=== PATIENT | male | born 1980 | race Caucasian/White ===

== ENCOUNTER → 2016-10-10 | Outpatient (CLI) | payer MEDICARE, MEDICAID ==
[2016-10-10 07:50] LABS: BASO % 0.6 % (0.0-1.0); EOS # 0.1 K/mm3 (0.0-0.50); EOS % 2.1 % (0.0-3.0); LARGE UNSTAINED CELL # 0.1 K/mm3 (0.0-0.4); LARGE UNSTAINED CELL % 2.4 % (0.0-4.0); LYMPH # 2.6 K/mm3 (1.5-4.5); MEAN CORPUSCULAR HEMOGLOBIN 31.2 pg (27.0-33.0); MONO # 0.4 K/mm3 (0.0-0.8); MONO % 6.7 % (0.0-5.0); NEUTROPHILS # 2.7 K/mm3 (1.8-7.7); NEUTROPHILS % 46.1 % (36.0-66.0); PLATELET COUNT, AUTOMATED 184 k/mm3 (150-450); RED CELL DISTRIBUTION WIDTH 12.3 % (11.5-14.5)
[2016-10-10 07:56] LABS: MEAN CORPUSCULAR HGB CONC 36.6 g/dl (32.0-36.5)
[2016-10-10 08:27] LABS: ALBUMIN 4.2 GM/DL (3.2-5.2); ALBUMIN/GLOBULIN RATIO 1.27 (1.00-1.93); ALKALINE PHOSPHATASE 109 U/L (45-117); ALT/SGPT 71 U/L (12-78); ANION GAP 6 MEQ/L (8-16); AST/SGOT 25 U/L (15-37); BILIRUBIN,TOTAL 0.7 MG/DL (0.2-1.0); BLOOD UREA NITROGEN 16 MG/DL (7-18); CARBON DIOXIDE LEVEL 29 MEQ/L (21-32); CHLORIDE LEVEL 104 MEQ/L (98-107); CHOLESTEROL LEVEL 145 MG/DL (<200); CREATININE FOR GFR 0.94 MG/DL (0.70-1.30); GLOMERULAR FILTRATION RATE > 60.0 (>60); GLUCOSE, FASTING 94 MG/DL (70-105); POTASSIUM SERUM 4.1 MEQ/L (3.5-5.1); SODIUM LEVEL 139 MEQ/L (136-145); TOTAL PROTEIN 7.5 GM/DL (6.4-8.2); TRIGLYCERIDES LEVEL 204 MG/DL (<150)
[2016-10-18 06:17] LABS: SUMMARY SEE SEPARATE REPORT
== END ==
LOC: M LAB 06:58
PROVIDERS: ATTEND Nurse Practitioner Family
DX: F25.1 Schizoaffective disorder, depressive type (principal); Z79.899 Other long term (current) drug therapy

== ENCOUNTER 2020-03-05 23:42 | Inpatient (IN) | payer MEDICARE, MEDICAID ==
[~2020-03-05] VITALS: Ht 182.9 cm; Wt 84.6 kg
[2020-03-06 00:34] LABS: HEMOGLOBIN 14.9 g/dl (13.5-17.5); MEAN CORPUSCULAR HEMOGLOBIN 30.5 pg (27.0-33.0); MEAN CORPUSCULAR HGB CONC 35.5 g/dl (32.0-36.5); MEAN CORPUSCULAR VOLUME 86.1 fl (80.0-96.0); PLATELET COUNT, AUTOMATED 156 10^3/uL (150-450); RED BLOOD COUNT 4.88 10^6/uL (4.30-6.10); WHITE BLOOD COUNT 4.9 10^3/uL (4.0-10.0)
--- NOTE | 2020-03-06 00:39 | REPVR ---
PROCEDURE INFORMATION: Exam: CT Head Without Contrast Exam date and time: 03/06/2020 12:17 AM Age: 40 years old Clinical indication: Other: Mhe delerium TECHNIQUE: Imaging protocol: Computed tomography of the head without contrast. Radiation optimization: All CT scans at this facility use at least one of these dose optimization techniques: automated exposure control; mA and/or kV adjustment per patient size (includes targeted exams where dose is matched to clinical indication); or iterative reconstruction. COMPARISON: No relevant prior studies available. FINDINGS: Brain: Normal. No hemorrhage. Unremarkable white matter. No mass effect. Cerebral ventricles: No ventriculomegaly. Bones/joints: Unremarkable. No acute fracture. Paranasal sinuses: Visualized sinuses are unremarkable. No fluid levels. Mastoid air cells: Visualized mastoid air cells are well aerated. Soft tissues: Unremarkable. IMPRESSION: Negative noncontrast head CT. Electronically signed by: Lexa You On 03/06/2020 00:39:50 AM
[2020-03-06 00:42] LABS: AMPHETAMINES LEVEL URINE NEGATIVE (NEGATIVE); BARBITURATES URINE NEGATIVE (NEGATIVE); BENZODIAZEPINES URINE NEGATIVE (NEGATIVE); CANNABINOIDS URINE NEGATIVE (NEGATIVE); COCAINE METABOLITE URINE NEGATIVE (NEGATIVE); METHADONE URINE NEGATIVE (NEGATIVE); OPIATES URINE NEGATIVE (NEGATIVE); PHENCYCLIDINE URINE NEGATIVE (NEGATIVE)
[2020-03-06 00:50] LABS: ACETAMINOPHEN LEVEL < 2.0 UG/ML (10.0-30.0); ALBUMIN 3.9 GM/DL (3.2-5.2); ALT/SGPT 25 U/L (12-78); BILIRUBIN,DIRECT 0.1 MG/DL (0.0-0.2); BILIRUBIN,TOTAL 0.4 MG/DL (0.2-1.0); BLOOD UREA NITROGEN 5 MG/DL (7-18); CALCIUM LEVEL 9.1 MG/DL (8.5-10.1); CARBON DIOXIDE LEVEL 27 MEQ/L (21-32); CHLORIDE LEVEL 113 MEQ/L (98-107); CREATININE FOR GFR 0.94 MG/DL (0.70-1.30); ETHYL ALCOHOL (ETHANOL) 0.105 % (0.000-0.010); GLOMERULAR FILTRATION RATE > 60.0 (>60); GLUCOSE, FASTING 100 MG/DL (70-100); POTASSIUM SERUM 3.8 MEQ/L (3.5-5.1); SALICYLATE LEVEL < 1.7 MG/DL (5.0-30.0); SODIUM LEVEL 145 MEQ/L (136-145); TOTAL PROTEIN 6.9 GM/DL (6.4-8.2)
[2020-03-06] MEDS ORDERED: traZODone 50 MG TAB PO PRN (03:30)
[2020-03-06] MEDS ORDERED: MAALOX 30 ML SUSP *UDC PO PRN (03:30)
[2020-03-06] MEDS ORDERED: ACETAMINOPHEN TAB 650MG DOSE (2X325MG) PO PRN (03:30)
[2020-03-06] MEDS ORDERED: OLANZapine ORAL DISINTEGRATING TAB 5MG PO PRN (03:30)
[2020-03-06] MEDS ORDERED: MOM 30ML SUSPENSION UDC PO PRN (03:30)
[2020-03-06 05:25] VITALS: BP 127/83
--- NOTE | 2020-03-06 13:24 | HPEPDOC ---
[facility] Medical History & Physical Date of Admission Mar 06, 2020 Date of Service: Mar 06, 2020 History and Physical Chief complaint: Presented to the hospital, brought in by police for unusual behavior and speech History of present illness: Patient is a 40-year-old male with past medical history of Insomnia, mood disorder, who was brought to the hospital by police for unusual behavior and speech. Patient was admitted to the inpatient mental health unit under the care of psychiatry. Hospitalist service was consulted for medical screening evaluation. Patient appears to be cooperative, however, is not helpful in answering many questions. Patient is very tangential and was unable to provide any answers to review of systems, medical history, surgical history, family history or social history. He did, however, participate in the physical exam. Past Medical History: Review of medical record has indicated insomnia and mood disorders Past Surgical History: Unable to be obtained Allergies: See below Medications: See below Family History: - Unable to be obtained Social History: - Unable to be obtained Review of Systems: - Unable to be obtained Physical exam: - Vitals: BP [127/83], HR [57], RR [18], Sat [98%RA], Temp [97.2F] - General: Lying in bed, No acute distress, AAOx3 - HEENT: NC, AT, PERRA - CVS: RRR, +S1S2 - Lungs: Fair air entry bilaterally, No wheezing / rales / rhonchi - Abdomen: Soft, Non-distended, Non-tender - Extremities: No lower extremity edema, No calf tenderness - Neuro: No focal motor or sensory deficit - Skin: No visible rashes Assessment and Plan: Unusual behavior/speech - likely 2/2 manic episode - Patient was admitted to inpatient mental health unit under the care of psychiatry - Patient is exhibiting paranoid behavior - Currently being managed by psychiatry No significant past medical history DVT prophylaxis - Will c/w early ambulation Female stoner out was present for the duration of this history and physical examination Thank you for this consultation; hospital service will now sign off. Please re- consult as needed Vital Signs Vital Signs Date Time Temp Pulse Resp B/P (MAP) Pulse Ox O2 Delivery O2 Flow Rate FiO2 03/06/20 05:25 97.2 57 18 127/83 (98) 98 Room Air Laboratory Data Labs 24H Laboratory Tests 2 03/06/20 00:01: Nucleated Red Blood Cells % (auto) 0.0, Anion Gap 5L, Glomerular Filtration Rate > 60.0, Calcium Level 9.1, Total Bilirubin 0.4, Direct Bilirubin 0.1, Aspartate Amino Transf (AST/SGOT) 18, Alanine Aminotransferase (ALT/SGPT) 25, Alkaline Phosphatase 151H, Total Protein 6.9, Albumin 3.9, Albumin/Globulin Ratio 1.3, Thyroid Stimulating Hormone (TSH) 1.330, Salicylates Level < 1.7L, Urine Opiates Screen NEGATIVE, Urine Methadone Screen NEGATIVE, Acetaminophen Level < 2.0L, Urine Barbiturates Screen NEGATIVE, Urine Phencyclidine Screen NEGATIVE, Urine Amphetamines Screen NEGATIVE, Urine Benzodiazepines Screen NEGATIVE, Urine Cocaine Metabolite Screen NEGATIVE, Urine Cannabinoids Screen NEGATIVE, Ethyl Alcohol Level 0.105H CBC/BMP Laboratory Tests 03/06/20 00:01 Home Medications Unable to Obtain Active Prescriptions or Reported Meds Allergies Coded Allergies: No Known Allergies (Unverified , 03/05/20) CATHY LÓPEZ MD Mar 06, 2020 13:24
[2020-03-06 17:45] VITALS: BP 110/70
[2020-03-06] MEDS: ARIPiprazole 2 MG TAB PO SCH (21:00)
[2020-03-07] MEDS ORDERED: INFLUENZA QUADRIVALENT PF VACCINE 0.5ML SYRINGE IM ONE (09:00)
[2020-03-07 18:47] VITALS: BP 147/94
[2020-03-07] MEDS: ARIPiprazole 2 MG TAB PO SCH (21:00)
[2020-03-08] MEDS: OLANZapine ORAL DISINTEGRATING TAB 5MG PO SCH ×2 (09:00→21:00)
--- NOTE | 2020-03-08 12:30 | MHIPNPDOC ---
[facility] Progress Note Progress Note DATE OF SERVICE: 03/08/20 HISTORY: Patient is a 40-Year old Male who was brought to [facility] for psychotic, bizarre and delusional symptoms. VITAL SIGNS: See below. NEW TEST RESULTS: CURRENT MEDICATIONS: See below. MENTAL STATUS EXAMINATION: Patient is a 40-year old male, who is was a 9.41 to [facility] for psychotic, bizarre and delusional thinking. He appears his stated age, his hair is buzzed cut, his hygiene and grooming is fair. His eye contact is impulsive and unpredictable. He makes poor eye contact. He is somewhat restless and agitated, walking in the hallways with nonsensical statements and at times word salad. Speech: Is spontaneous and nonsensical, word salad and possible neologism Language skills are word salad, disorganized Thought processes including: disorganized, scattered, loose associations, thought blocking Thought content: Unable to ascertain depression, anxiety or suicidal/homicidal ideation. Patient is acutely psychotic and delusional. Abstract reasoning, and computation: Poor Description of associations: Disorganized and bizarre thinking "I don't take orders and I don't take meds" Description of abnormal or psychotic thoughts: Disorganized thoughts, thought blocking, makes bizarre and nonsensical statements, walking through the hallway making random statements Judgment: poor Insight: poor Orientation: alert and oriented to self Recent and remote memory: Unable to determine, thought blocking Attention span and concentration: poor Language: poor making nonsensical statements Fund of knowledge: unable to determine Mood: Hypomanic. Affect: Hypomanic/irritable DIAGNOSES: 1. Schizoaffective Disorder 2. Unspecified Schizophrenia and Other Psychotic Disorders ASSESSMENT: Patient remains psychotic. Have attempted to get patient to take an antipsychotic medications, he refuses. He presents with severely impaired insight and judgment. I attempted to have a conversation with the patient, he swiftly approached me making a statement that he does not needs medications. It is difficult to engage the patient in a conversation due to his extreme loose associations, although he is cooperative on the unit he remains very acutely psychotic, but does not appear to be dangerous or impulsive. MANAGEMENT PLAN: Patient is not stable for discharge. If patient does not improve by day 5 and still is refusing medications, I will start procedures for treatment over objection with orders to transfer to a [facility]. TIME SPENT: 15 minutes. Vital Signs Vital Signs Date Time Temp Pulse Resp B/P (MAP) Pulse Ox O2 Delivery O2 Flow Rate FiO2 03/07/20 18:47 98.0 73 18 147/94 (111) 97 Room Air Current Medications Current Medications Medications (Trade) Dose Ordered Sig/Ignacio Route PRN Reason Start Time Stop Time Status Last Admin Dose Admin Acetaminophen (Tylenol Tab) 650 mg Q6HP PRN PO HEADACHE or DISCOMFORT 03/06/20 03:30 Al Hydrox/Mg Hydrox/Simethicone (Mylanta) 30 ml Q4HP PRN PO HEARTBURN/INDIGESTION 03/06/20 03:30 Aripiprazole (AbiLIFY) 2 mg QHS PO 03/06/20 21:00 Home Med (Med Rec Complete!) ASDIRECTED XX 03/06/20 01:15 03/06/20 01:06 DC Magnesium Hydroxide (Milk Of Magnesia) 30 ml DAILYPRN PRN PO CONSTIPATION 03/06/20 03:30 Olanzapine (ZyPREXA ZYDIS) 5 mg BID PO 03/08/20 09:00 Olanzapine (ZyPREXA ZYDIS) 5 mg Q4HP PRN PO ANXIETY/AGITATION 03/06/20 03:30 Trazodone HCl (Desyrel) 50 mg QHSP PRN PO INSOMNIA 03/06/20 03:30 Allergies Coded Allergies: No Known Allergies (Unverified , 03/05/20) ROBERT MURILLO NP Mar 08, 2020 12:30
--- NOTE | 2020-03-08 13:22 | MHIPN ---
DATE: 03/07/2020 VITAL SIGNS: Blood pressure 110/70, pulse 66, temperature 98.6. CHIEF COMPLAINT: Offers no complaint, but has been pacing the unit during the morning. SUBJECTIVE: Seen for followup. Indicates slept very little, spontaneously makes statements which are not in context with what is being discussed, and is mildly agitated. Displays looseness of associations, they are looser than yesterday, disjointed statements, some of which are coherent. Affect is fair range, appears mildly irritated. No evidence of any active thoughts of harming himself or anyone else. Is quite likely deluded. Judgment and insight remain poor. ASSESSMENT: Unspecified psychotic disorder. Differential diagnoses includes bipolar disorder versus schizophrenia. PLAN: Continue current observations. He has been started on Abilify, which he has declined, we will look at persuading him to take it. He is meanwhile also on olanzapine as needed. Would suggest obtaining collateral information. Further recommendations will be made when he sees the assigned clinician tomorrow. LULA
[2020-03-08 17:00] VITALS: BP 131/80
[2020-03-08] MEDS: ARIPiprazole 2 MG TAB PO SCH (21:00)
[2020-03-09 06:42] VITALS: BP 133/66
[2020-03-09] MEDS: OLANZapine ORAL DISINTEGRATING TAB 5MG PO SCH ×2 (09:00→21:00)
[2020-03-09] MEDS ORDERED: diphenhydrAMINE 50MG CAP PO STA (11:38)
[2020-03-09] MEDS ORDERED: LORazepam 2 MG TAB PO STA (11:38)
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
[2020-03-09 16:31] VITALS: BP 141/87
[2020-03-09] MEDS: ARIPiprazole 2 MG TAB PO SCH (21:00)
[2020-03-10] MEDS: OLANZapine ORAL DISINTEGRATING TAB 5MG PO SCH ×2 (09:00→21:06)
[2020-03-10] MEDS ORDERED: diphenhydrAMINE 50MG CAP PO STA (11:23)
[2020-03-10] MEDS ORDERED: LORazepam 2 MG TAB PO STA (11:23)
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
[2020-03-10 16:31] VITALS: BP 103/68
[2020-03-10] MEDS: ARIPiprazole 2 MG TAB PO SCH (21:06)
[2020-03-11] MEDS: OLANZapine ORAL DISINTEGRATING TAB 5MG PO SCH (09:00)
[2020-03-11] MEDS ORDERED: BENZTROPINE 0.5 MG TAB PO PRN (11:15)
[2020-03-11] MEDS ORDERED: haloperidoL 5 MG TAB PO PRN (11:30)
[2020-03-11] MEDS: haloperidoL 5 MG TAB PO SCH ×3 (11:37→22:06)
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
[2020-03-12 06:47] VITALS: BP 139/62
[2020-03-12] MEDS: haloperidoL 5 MG TAB PO SCH ×3 (09:04→21:15)
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
[2020-03-12 16:09] VITALS: BP 140/70
[2020-03-13 06:42] VITALS: BP 129/75
[2020-03-13] MEDS: haloperidoL 5 MG TAB PO SCH ×3 (09:44→21:06)
[2020-03-13] MEDS: BENZTROPINE 0.5 MG TAB PO ONE ×2 (16:11→16:17)
[2020-03-13 16:31] VITALS: BP 136/90
[2020-03-13] MEDS: diphenhydrAMINE 50MG CAP PO PRN (17:15)
[2020-03-13 20:05] VITALS: BP 138/86
[2020-03-13] MEDS ORDERED: BENZTROPINE 0.5 MG TAB PO SCH (21:00)
--- NOTE | 2020-03-13 21:58 | HPEPDOC ---
[facility] Medical History & Physical Date of Admission Mar 13, 2020 Date of Service: Mar 13, 2020 Attending Physician: So Damon MD History and Physical REASON FOR CONSULT: RN requesting topical antibiotics HISTORY OF PRESENT ILLNESS: This 40 yr old M was admitted to [facility] on Mar 05 for management of an unspecified psychotic disorder. This evening he tried to remove some of the tattoos on his chest with a pencil. At the time of my arrival he reported that he had changed his mid and will keep the tattoos and that he wants to focus on getting housing. He denied having any pain, puncturing his skin or dislodging of the tip of the pencil in his skin. ROS: negative except as listed in HPI PAST MEDICAL/SURGICAL/PSYCHIATRIC HISTORY: Schizoaffective disorder SOCIAL HISTORY: Drinks a six pack a few times a month FAMILY HISTORY: n/a ALLERGIES: Please see below. HOME MEDICATIONS: Please see below. PHYSICAL EXAMINATION: Vital Signs Date Time Temp Pulse Resp B/P (MAP) Pulse Ox O2 Delivery O2 Flow Rate FiO2 03/07/20 07:58 Room Air 03/07/20 18:47 98.0 73 18 147/94 (111) 97 GENERAL APPEARANCE: asleep but arousable w vocal stimuli INTEGUMENT: has multiple tattoos / he has some redness of the skin surrounding a dolphin tattoo at his left upper chest, but the skin is intact and there is no discharge from the skin ASSESSMENT: is a 40 yr old w a hx of Schizoaffective disorder who was admitted to [facility] for management of an unspecified psychotic episode; we were reconsulted to examine him after he tried to remove his tattoos with a pencil. PLAN: 1. Unspecified Psychotic Disorder Plan: per primary team 2. Closed skin wound The wound is to superficial to be classified as an abrasion There is no need order topical abx such as Bacitracin Plan: no intervention needed Thank you for consulting us. We will sign-off. Please feel free to reconsults as needed. Vital Signs Vital Signs Date Time Temp Pulse Resp B/P (MAP) Pulse Ox O2 Delivery O2 Flow Rate FiO2 03/13/20 20:05 76 18 138/86 (103) 03/13/20 16:31 98.0 03/13/20 06:42 97 Room Air Home Medications Unable to Obtain Active Prescriptions or Reported Meds Allergies Coded Allergies: No Known Allergies (Unverified , 03/05/20) A-FIB/CHADSVASC A-FIB History Current/History of A-Fib/PAF?: No Current PO Anticoag Therapy: No BENNETT MOORE MD Mar 13, 2020 21:58
[2020-03-14 06:41] VITALS: BP 105/62
[2020-03-14] MEDS: haloperidoL 5 MG TAB PO SCH ×3 (09:53→22:04)
[2020-03-14] MEDS: diphenhydrAMINE 50MG CAP PO PRN ×2 (14:58→22:04)
[2020-03-14 16:48] VITALS: BP 132/90
[2020-03-15 07:02] VITALS: BP 116/79
[2020-03-15] MEDS: haloperidoL 5 MG TAB PO SCH ×3 (09:33→20:53)
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
[2020-03-15] MEDS: diphenhydrAMINE 50MG CAP PO PRN ×2 (14:05→20:53)
[2020-03-15 18:07] VITALS: BP 133/71
[2020-03-16] MEDS: haloperidoL 5 MG TAB PO SCH ×3 (09:22→22:35)
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
[2020-03-16 18:01] VITALS: BP 128/58
[2020-03-17 07:07] VITALS: BP 110/64
[2020-03-17] MEDS: haloperidoL 5 MG TAB PO SCH ×3 (10:10→20:55)
--- NOTE | 2020-03-17 13:01 | MHIPNPDOC ---
[facility] Progress Note Progress Note DATE OF SERVICE: 03/17/20 HISTORY: Patient is a 40 year old Single, Male who was brought into ED on a pickup order. According to the ED, patient was brought in by police, found to be yelling that perhaps he may have been robbed at knifepoint. He was observed to be confused, disorganized and had altered mental status. VITAL SIGNS: See below. NEW TEST RESULTS: See CT report, no unusual changes CURRENT MEDICATIONS: See below. MENTAL STATUS EXAMINATION: Patient is a 40-year old male, who is was a 9.41 to [facility] for psychotic, bizarre and delusional thinking. He appears his stated age, his hair is buzzed cut, his hygiene and grooming is fair. His eye contact is improved, he makes longer eye contact. He is not observed as restless and or agitated. He is making full and completed sentences many times, still walking in the hallways but with less swiftness and more casual. Speech: Is spontaneous and more linear, ram and more complete sentences. He does have an altered greg to his speech pattern, Language skills are improving, at times disorganized Thought processes including: less disorganized, less scattered, less loose associations Thought content: Unable to ascertain depression, anxiety or suicidal/homicidal ideation. Abstract reasoning, and computation: Poor Description of associations: Disorganized and bizarre thinking, speaking in full sentences. Description of abnormal or psychotic thoughts: Milder disorganized thoughts, continued thought blocking, still walking through the hallway making random statements Judgment: fair Insight: fair Orientation: alert and oriented to self Recent and remote memory: improving Attention span and concentration: fair Language: improving Fund of knowledge: improving Mood: more euthymic. Affect: reactive DIAGNOSES: 1. Schizoaffective Disorder 2. Unspecified Schizophrenia and Other Psychotic Disorders ASSESSMENT: Patient comes into the office sporadically throughout the shift. I have attempted to have him sit for longer periods, but today he is unable to do so. He stated something about his parents. When asked where his parents are, he states "[place] He further stated that he cannot return to that town because [facility] was there, and that there was an "issue crossing the river at [employer]." He continued to make statements that when he is discharged he wants to help getting housing. He continues to make random, words that are out of context. "Precipitation, not perspiration." He entered the office, stating that he will make sure his bangs are a few inches longer. He returned to the office, "My hair will be good on Sunday, just enough." Continues to have poor articulation and demonstrates that his mental status is improving but not stable for discharge. MANAGEMENT PLAN: Continue all medications. Patient is not safe for discharge at this time, but he is improving. Continue all medications. TIME SPENT: 15 minutes. Vital Signs Vital Signs Date Time Temp Pulse Resp B/P (MAP) Pulse Ox O2 Delivery O2 Flow Rate FiO2 03/17/20 07:07 98.7 74 16 110/64 (79) 99 Room Air Current Medications Current Medications Medications (Trade) Dose Ordered Sig/Ignacio Route PRN Reason Start Time Stop Time Status Last Admin Dose Admin Acetaminophen (Tylenol Tab) 650 mg Q6HP PRN PO HEADACHE or DISCOMFORT 03/06/20 03:30 Al Hydrox/Mg Hydrox/Simethicone (Mylanta) 30 ml Q4HP PRN PO HEARTBURN/INDIGESTION 03/06/20 03:30 Aripiprazole (AbiLIFY) 2 mg QHS PO 03/06/20 21:00 03/11/20 11:15 DC 03/10/20 21:06 Benztropine Mesylate (Cogentin) 0.5 mg BID PO 03/13/20 21:00 03/13/20 16:33 DC Benztropine Mesylate (Cogentin) 0.5 mg BIDP PRN PO EPS 03/11/20 11:15 Cancel Diphenhydramine HCl (Benadryl) 50 mg Q4HP PRN PO EPS 03/13/20 17:00 03/15/20 20:53 Diphenhydramine HCl (Benadryl) 50 mg STAT STAT PO 03/09/20 11:38 03/09/20 11:40 DC 03/09/20 11:57 Diphenhydramine HCl (Benadryl) 50 mg STAT STAT PO 03/10/20 11:23 03/10/20 11:27 DC 03/10/20 11:36 Haloperidol (Haldol) 5 mg Q8HP PRN PO AGITATION 03/11/20 11:30 Haloperidol (Haldol) 5 mg TID PO 03/11/20 09:00 03/17/20 10:10 Haloperidol (Haldol) 10 mg STAT STAT PO 03/09/20 11:38 03/09/20 11:40 DC 03/09/20 11:57 Haloperidol (Haldol) 10 mg STAT STAT PO 03/10/20 11:23 03/10/20 11:27 DC 03/10/20 11:36 Home Med (Med Rec Complete!) ASDIRECTED XX 03/06/20 01:15 03/06/20 01:06 DC Lorazepam (Ativan) 2 mg STAT STAT PO 03/09/20 11:38 03/09/20 11:40 DC 03/09/20 11:57 Lorazepam (Ativan) 2 mg STAT STAT PO 03/10/20 11:23 03/10/20 11:27 DC 03/10/20 11:37 Magnesium Hydroxide (Milk Of Magnesia) 30 ml DAILYPRN PRN PO CONSTIPATION 03/06/20 03:30 Olanzapine (ZyPREXA ZYDIS) 5 mg BID PO 03/08/20 09:00 03/11/20 11:19 DC 03/10/20 21:06 Olanzapine (ZyPREXA ZYDIS) 5 mg Q4HP PRN PO ANXIETY/AGITATION 03/06/20 03:30 03/11/20 11:19 DC Trazodone HCl (Desyrel) 50 mg QHSP PRN PO INSOMNIA 03/06/20 03:30 Allergies Coded Allergies: No Known Allergies (Unverified , 03/05/20) ROBERT MURILLO ACQUISITION MANAGER Mar 17, 2020 13:01
[2020-03-17] MEDS: diphenhydrAMINE 50MG CAP PO PRN (14:42)
[2020-03-17 18:00] VITALS: BP 129/86
[2020-03-18 06:17] VITALS: BP 112/70
[2020-03-18] MEDS: haloperidoL 5 MG TAB PO SCH ×2 (09:55→20:06)
--- NOTE | 2020-03-18 10:20 | MHIPNPDOC ---
[facility] Progress Note Progress Note DATE OF SERVICE: 03/18/20 HISTORY: Patient is a 40 year old Single, Male who was brought into ED on a pickup order. According to the ED, patient was brought in by police, found to be yelling that perhaps he may have been robbed at knifepoint. He was observed to be confused, disorganized and had altered mental status. VITAL SIGNS: See below. NEW TEST RESULTS: See CT report, no unusual changes CURRENT MEDICATIONS: See below. MENTAL STATUS EXAMINATION: Patient is a 40-year old male, who is was a 9.41 to [facility] for psychotic, bizarre and delusional thinking. He appears his stated age, his hair is buzzed cut, his hygiene and grooming is fair. His eye contact is improved, he makes longer eye contact. He is not observed as restless and or agitated. Speech: Is spontaneous broken sentences. He is back to one word sentences. Altered speech pattern Language : disorganized Thought processes including: today he is observed with more disorganization, he is scattered, more loose associations Thought content: Unable to ascertain depression, anxiety or suicidal/homicidal ideation. Abstract reasoning, and computation: Poor Description of associations: Disorganized and bizarre thinking, broken and altered thought processes Description of abnormal or psychotic thoughts: increased disorganized thoughts, thought blocking, still walking into the office making bizarre and random statements Judgment: poor Insight: poor Orientation: alert and oriented to self Recent and remote memory: poor Attention span and concentration: poor Language: poor Fund of knowledge: unable to ascertain Mood: Bizarre. Affect: Blunted DIAGNOSES: 1. Schizoaffective Disorder 2. Unspecified Schizophrenia and Other Psychotic Disorders ASSESSMENT: Patient comes into the office sporadically throughout the shift. I have attempted to have him sit for longer periods, but unable. He makes bizarre statements, "Just a single comment. [place]oga, Hair, Sunday just enough. "Collective soul, Melodies." "Marcos Rowland, jessica Norris Tedra." "Parker" He is thought blocking There seems to be a decline in his articulation and demonstrates that his mental status is improving but not stable for discharge. MANAGEMENT PLAN: Continue all medications. I am increasing the Haldol to 10 mg BID. Patient is not safe for discharge at this time, and appears to have moderate decline today. Continue all medications. TIME SPENT: 15 minutes. Vital Signs Vital Signs Date Time Temp Pulse Resp B/P (MAP) Pulse Ox O2 Delivery O2 Flow Rate FiO2 03/18/20 06:17 97.3 86 18 112/70 (84) 96 Room Air Current Medications Current Medications Medications (Trade) Dose Ordered Sig/Ignacio Route PRN Reason Start Time Stop Time Status Last Admin Dose Admin Acetaminophen (Tylenol Tab) 650 mg Q6HP PRN PO HEADACHE or DISCOMFORT 03/06/20 03:30 Al Hydrox/Mg Hydrox/Simethicone (Mylanta) 30 ml Q4HP PRN PO HEARTBURN/INDIGESTION 03/06/20 03:30 Aripiprazole (AbiLIFY) 2 mg QHS PO 03/06/20 21:00 03/11/20 11:15 DC 03/10/20 21:06 Benztropine Mesylate (Cogentin) 0.5 mg BID PO 03/13/20 21:00 03/13/20 16:33 DC Benztropine Mesylate (Cogentin) 0.5 mg BIDP PRN PO EPS 03/11/20 11:15 Cancel Diphenhydramine HCl (Benadryl) 50 mg Q4HP PRN PO EPS 03/13/20 17:00 03/17/20 14:42 Diphenhydramine HCl (Benadryl) 50 mg STAT STAT PO 03/09/20 11:38 03/09/20 11:40 DC 03/09/20 11:57 Diphenhydramine HCl (Benadryl) 50 mg STAT STAT PO 03/10/20 11:23 03/10/20 11:27 DC 03/10/20 11:36 Haloperidol (Haldol) 5 mg Q8HP PRN PO AGITATION 03/11/20 11:30 Haloperidol (Haldol) 5 mg TID PO 03/11/20 09:00 03/18/20 09:55 Haloperidol (Haldol) 10 mg STAT STAT PO 03/09/20 11:38 03/09/20 11:40 DC 03/09/20 11:57 Haloperidol (Haldol) 10 mg STAT STAT PO 03/10/20 11:23 03/10/20 11:27 DC 03/10/20 11:36 Home Med (Med Rec Complete!) ASDIRECTED XX 03/06/20 01:15 03/06/20 01:06 DC Lorazepam (Ativan) 2 mg STAT STAT PO 03/09/20 11:38 03/09/20 11:40 DC 03/09/20 11:57 Lorazepam (Ativan) 2 mg STAT STAT PO 03/10/20 11:23 03/10/20 11:27 DC 03/10/20 11:37 Magnesium Hydroxide (Milk Of Magnesia) 30 ml DAILYPRN PRN PO CONSTIPATION 03/06/20 03:30 Olanzapine (ZyPREXA ZYDIS) 5 mg BID PO 03/08/20 09:00 03/11/20 11:19 DC 03/10/20 21:06 Olanzapine (ZyPREXA ZYDIS) 5 mg Q4HP PRN PO ANXIETY/AGITATION 03/06/20 03:30 03/11/20 11:19 DC Trazodone HCl (Desyrel) 50 mg QHSP PRN PO INSOMNIA 03/06/20 03:30 Allergies Coded Allergies: No Known Allergies (Unverified , 03/05/20) ROBERT MURILLO ENVIRONMENTAL HEALTH NURSE Mar 18, 2020 10:20
[2020-03-18] MEDS: diphenhydrAMINE 50MG CAP PO PRN ×2 (13:09→20:06)
[2020-03-18 18:30] VITALS: BP 119/82
[2020-03-19 06:30] VITALS: BP 119/66
[2020-03-19] MEDS: haloperidoL 5 MG TAB PO SCH ×2 (08:18→20:27)
--- NOTE | 2020-03-19 13:02 | MHIPNPDOC ---
[facility] Progress Note Progress Note DATE OF SERVICE: 03/19/20 HISTORY: Patient is a 40 year old Single, Male who was brought into ED on a pickup order. According to the ED, patient was brought in by police, found to be yelling that perhaps he may have been robbed at knifepoint. He was observed to be confused, disorganized and had altered mental status. VITAL SIGNS: See below. NEW TEST RESULTS: See CT report, no unusual changes CURRENT MEDICATIONS: See below. MENTAL STATUS EXAMINATION: Patient is a 40-year old male, who is a 2PC to [facility] for psychotic, bizarre and delusional thinking. He appears his stated age, his hair is buzzed cut, his hygiene and grooming is fair. His eye contact is improved, he makes longer eye contact. He is not observed as restless and or agitated. Speech: Patient's speech is improved today from yesterday Language : intact Thought processes including: today he is observed with less disorganization, he is mildly scattered Thought content: denies depression, anxiety or suicidal/homicidal ideation. Abstract reasoning, and computation: Poor Description of associations: broken and altered thought processes at times Description of abnormal or psychotic thoughts: decreased disorganized thoughts Judgment: fair Insight: fair Orientation: alert and oriented to self Recent and remote memory: fair Attention span and concentration: fair Language: expansive Fund of knowledge: average Mood: Blunted. Affect: Blunted DIAGNOSES: 1. Schizoaffective Disorder 2. Unspecified Schizophrenia and Other Psychotic Disorders ASSESSMENT: Observed with less thought blocking, stated today "I am worried about being out there because of my housing, I don't have a firm landing. States that he has a 4 year degree in health and that he is worried about getting a job. States that he had a issue in the last apartment. Patient does have periods of anomic aphasia, difficulty supplying the word that he wants to say There seems to be a uptick in his articulation and demonstrates that his mental status is improving but not stable for discharge today. MANAGEMENT PLAN: Continue all medications. I am increasing the Haldol to 10 mg BID, this appears to have been effective. Patient is not safe for discharge at this time, and appears to have moderate decline today. Continue all medications. TIME SPENT: 25 minutes. Vital Signs Vital Signs Date Time Temp Pulse Resp B/P (MAP) Pulse Ox O2 Delivery O2 Flow Rate FiO2 03/19/20 06:30 98.7 89 14 119/66 (83) 03/18/20 06:17 96 Room Air Current Medications Current Medications Medications (Trade) Dose Ordered Sig/Ignacio Route PRN Reason Start Time Stop Time Status Last Admin Dose Admin Acetaminophen (Tylenol Tab) 650 mg Q6HP PRN PO HEADACHE or DISCOMFORT 03/06/20 03:30 Al Hydrox/Mg Hydrox/Simethicone (Mylanta) 30 ml Q4HP PRN PO HEARTBURN/INDIGESTION 03/06/20 03:30 Aripiprazole (AbiLIFY) 2 mg QHS PO 03/06/20 21:00 03/11/20 11:15 DC 03/10/20 21:06 Benztropine Mesylate (Cogentin) 0.5 mg BID PO 03/13/20 21:00 03/13/20 16:33 DC Benztropine Mesylate (Cogentin) 0.5 mg BIDP PRN PO EPS 03/11/20 11:15 Cancel Diphenhydramine HCl (Benadryl) 50 mg Q4HP PRN PO EPS 03/13/20 17:00 03/18/20 20:06 Diphenhydramine HCl (Benadryl) 50 mg STAT STAT PO 03/09/20 11:38 03/09/20 11:40 DC 03/09/20 11:57 Diphenhydramine HCl (Benadryl) 50 mg STAT STAT PO 03/10/20 11:23 03/10/20 11:27 DC 03/10/20 11:36 Haloperidol (Haldol) 5 mg Q8HP PRN PO AGITATION 03/11/20 11:30 Haloperidol (Haldol) 5 mg TID PO 03/11/20 09:00 03/18/20 10:21 DC 03/18/20 09:55 Haloperidol (Haldol) 10 mg BID PO 03/18/20 21:00 03/19/20 08:18 Haloperidol (Haldol) 10 mg STAT STAT PO 03/09/20 11:38 03/09/20 11:40 DC 03/09/20 11:57 Haloperidol (Haldol) 10 mg STAT STAT PO 03/10/20 11:23 03/10/20 11:27 DC 03/10/20 11:36 Home Med (Med Rec Complete!) ASDIRECTED XX 03/06/20 01:15 03/06/20 01:06 DC Lorazepam (Ativan) 2 mg STAT STAT PO 03/09/20 11:38 03/09/20 11:40 DC 03/09/20 11:57 Lorazepam (Ativan) 2 mg STAT STAT PO 03/10/20 11:23 03/10/20 11:27 DC 03/10/20 11:37 Magnesium Hydroxide (Milk Of Magnesia) 30 ml DAILYPRN PRN PO CONSTIPATION 03/06/20 03:30 Olanzapine (ZyPREXA ZYDIS) 5 mg BID PO 03/08/20 09:00 03/11/20 11:19 DC 03/10/20 21:06 Olanzapine (ZyPREXA ZYDIS) 5 mg Q4HP PRN PO ANXIETY/AGITATION 03/06/20 03:30 03/11/20 11:19 DC Trazodone HCl (Desyrel) 50 mg QHSP PRN PO INSOMNIA 03/06/20 03:30 Allergies Coded Allergies: No Known Allergies (Unverified , 03/05/20) ROBERT MURILLO NP Mar 19, 2020 13:02
[2020-03-19 18:51] VITALS: BP 113/61
[2020-03-20 07:07] VITALS: BP 104/61
[2020-03-20] MEDS: haloperidoL 5 MG TAB PO SCH ×2 (09:56→23:54)
[2020-03-20] MEDS: diphenhydrAMINE 50MG CAP PO PRN (16:20)
[2020-03-20 18:20] VITALS: BP 138/66
[2020-03-21 07:10] VITALS: BP 128/59
[2020-03-21] MEDS: haloperidoL 5 MG TAB PO SCH ×2 (09:57→20:27)
[2020-03-21] MEDS: diphenhydrAMINE 50MG CAP PO PRN (17:59)
[2020-03-21 18:45] VITALS: BP 121/67
[2020-03-22 06:17] VITALS: BP 105/71
[2020-03-22] MEDS: haloperidoL 5 MG TAB PO SCH ×2 (09:53→21:00)
[2020-03-22 16:13] VITALS: BP 113/59
--- NOTE | 2020-03-22 16:47 | MHIPNPDOC ---
[facility] Progress Note Progress Note DATE OF SERVICE: 03/22/20 HISTORY:Patient is a 40 year old Single, Male who was brought into ED on a pickup order. According to the ED, patient was brought in by police, found to be yelling that perhaps he may have been robbed at knifepoint. He was observed to be confused, disorganized and had altered mental status. VITAL SIGNS: See below. NEW TEST RESULTS: CURRENT MEDICATIONS: See below. Patient is a 40-year old male, who is a 2P to [facility] for psychotic, bizarre and delusional thinking. He appears his stated age, his hair is buzzed cut, his hygiene and grooming is fair. His eye contact is improved, he makes longer eye contact. He is not observed as restless and or agitated. Speech: Patient's speech is fluid, spontaneous, normal rate, tone and volume Language : intact Thought processes including: reality based, linear and goal oriented Thought content: denies depression, anxiety or suicidal/homicidal ideation. Abstract reasoning, and computation: improved Description of associations: denies and none observed Description of abnormal or psychotic thoughts: decreased disorganized thoughts Judgment: fair Insight: fair Orientation: alert and oriented to self Recent and remote memory: fair Attention span and concentration: fair Language: expansive Fund of knowledge: average Mood: "better". Affect: reactive DIAGNOSES: 1. Schizoaffective Disorder 2. Unspecified Schizophrenia and Other Psychotic Disorders ASSESSMENT: Observed with less thought blocking, stated today . He is articulating very well, his speech pattern and thinking is fluid and conversant today. He is requesting discharge and states that he wants to return home if he is able. He demonstrates that his mental status is improving but not stable for discharge today. His mentation is greatly improved and he is not meeting criteria as this continues to improve. He does have period of aphasia in which he has difficulty finding his words. But overall his mentation has improved enough for us to consider his discharge this week. MANAGEMENT PLAN: Continue all medications. Patient is to be discharged to his apartment, pending that he is still able to return. Discharge this week Continue all medications. TIME SPENT: 25 minutes. Vital Signs Vital Signs Date Time Temp Pulse Resp B/P (MAP) Pulse Ox O2 Delivery O2 Flow Rate FiO2 03/22/20 16:13 98.8 76 16 113/59 (77) 03/22/20 06:17 99 Room Air Current Medications Current Medications Medications (Trade) Dose Ordered Sig/Ignacio Route PRN Reason Start Time Stop Time Status Last Admin Dose Admin Acetaminophen (Tylenol Tab) 650 mg Q6HP PRN PO HEADACHE or DISCOMFORT 03/06/20 03:30 Al Hydrox/Mg Hydrox/Simethicone (Mylanta) 30 ml Q4HP PRN PO HEARTBURN/INDIGESTION 03/06/20 03:30 Aripiprazole (AbiLIFY) 2 mg QHS PO 03/06/20 21:00 03/11/20 11:15 DC 03/10/20 21:06 Benztropine Mesylate (Cogentin) 0.5 mg BID PO 03/13/20 21:00 03/13/20 16:33 DC Benztropine Mesylate (Cogentin) 0.5 mg BIDP PRN PO EPS 03/11/20 11:15 Cancel Diphenhydramine HCl (Benadryl) 50 mg Q4HP PRN PO EPS 03/13/20 17:00 03/21/20 17:59 Diphenhydramine HCl (Benadryl) 50 mg STAT STAT PO 03/09/20 11:38 03/09/20 11:40 DC 03/09/20 11:57 Diphenhydramine HCl (Benadryl) 50 mg STAT STAT PO 03/10/20 11:23 03/10/20 11:27 DC 03/10/20 11:36 Haloperidol (Haldol) 5 mg Q8HP PRN PO AGITATION 03/11/20 11:30 Haloperidol (Haldol) 5 mg TID PO 03/11/20 09:00 03/18/20 10:21 DC 03/18/20 09:55 Haloperidol (Haldol) 10 mg BID PO 03/18/20 21:00 03/22/20 09:53 Haloperidol (Haldol) 10 mg STAT STAT PO 03/09/20 11:38 03/09/20 11:40 DC 03/09/20 11:57 Haloperidol (Haldol) 10 mg STAT STAT PO 03/10/20 11:23 03/10/20 11:27 DC 03/10/20 11:36 Home Med (Med Rec Complete!) ASDIRECTED XX 03/06/20 01:15 03/06/20 01:06 DC Lorazepam (Ativan) 2 mg STAT STAT PO 03/09/20 11:38 03/09/20 11:40 DC 03/09/20 11:57 Lorazepam (Ativan) 2 mg STAT STAT PO 03/10/20 11:23 03/10/20 11:27 DC 03/10/20 11:37 Magnesium Hydroxide (Milk Of Magnesia) 30 ml DAILYPRN PRN PO CONSTIPATION 03/06/20 03:30 Olanzapine (ZyPREXA ZYDIS) 5 mg BID PO 03/08/20 09:00 03/11/20 11:19 DC 03/10/20 21:06 Olanzapine (ZyPREXA ZYDIS) 5 mg Q4HP PRN PO ANXIETY/AGITATION 03/06/20 03:30 03/11/20 11:19 DC Trazodone HCl (Desyrel) 50 mg QHSP PRN PO INSOMNIA 03/06/20 03:30 Allergies Coded Allergies: No Known Allergies (Unverified , 03/05/20) ROBERT MURILLO ZIPPER REPAIRER Mar 22, 2020 16:47
[2020-03-22] MEDS: diphenhydrAMINE 50MG CAP PO PRN (17:40)
[2020-03-23 06:42] VITALS: BP 103/57
[2020-03-23] MEDS: haloperidoL 5 MG TAB PO SCH ×2 (08:21→20:09)
--- NOTE | 2020-03-23 10:07 | MHIPNPDOC ---
[facility] Progress Note Progress Note DATE OF SERVICE: 03/23/20 HISTORY:Patient is a 40 year old Single, Male who was brought into ED on a pickup order. According to the ED, patient was brought in by police, found to be yelling that perhaps he may have been robbed at knifepoint. He was observed to be confused, disorganized and had altered mental status. VITAL SIGNS: See below. NEW TEST RESULTS: CURRENT MEDICATIONS: See below. Patient is a 40-year old male, who is a 2PC to [facility] for psychotic, bizarre and delusional thinking. He appears his stated age, his hair is buzzed cut, his hygiene and grooming is fair. His eye contact is improved, he makes longer eye contact. He is not observed as restless and or agitated. Speech: Patient's speech is fluid, spontaneous, normal tone and volume Language : intact Thought processes including: reality based, linear and goal oriented, but at times disorganized and disjointed Thought content: denies depression, anxiety or suicidal/homicidal ideation. Abstract reasoning, and computation: improved Description of associations: denies and none observed Description of abnormal or psychotic thoughts: decreased disorganized thoughts Judgment: fair Insight: fair Orientation: alert and oriented to self Recent and remote memory: fair Attention span and concentration: fair Language: fair Fund of knowledge: average Mood: Reports no depression. Euthymic Affect: reactive DIAGNOSES: 1. Schizoaffective Disorder 2. Unspecified Schizophrenia and Other Psychotic Disorders ASSESSMENT: Patient observed with continued improvements, he has hesitation in his sentences but he is able to communicate although he has moments when he has difficulty coming up with a word or two. Many times he makes random statements that are incongruent to the current topic. Stated in today's interview that he may or may not be able to return to [facility] due to the noise complaints. He admits that he was the cause of the noise complaints. 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 MANAGEMENT PLAN: Patient agreeable to Haldol Decanoate 100 mg IM 03/24/20. When we can establish his housing and whether he has case management patient is to be discharged to his apartment, pending that he is still able to return. Discharge when he is stable and has safe housing. Continue all medications. TIME SPENT: 25 minutes. Vital Signs Vital Signs Date Time Temp Pulse Resp B/P (MAP) Pulse Ox O2 Delivery O2 Flow Rate FiO2 03/23/20 06:42 98.5 61 16 103/57 (72) 03/22/20 06:17 99 Room Air Current Medications Current Medications Medications (Trade) Dose Ordered Sig/Ignacio Route PRN Reason Start Time Stop Time Status Last Admin Dose Admin Acetaminophen (Tylenol Tab) 650 mg Q6HP PRN PO HEADACHE or DISCOMFORT 03/06/20 03:30 Al Hydrox/Mg Hydrox/Simethicone (Mylanta) 30 ml Q4HP PRN PO HEARTBURN/INDIGESTION 03/06/20 03:30 Aripiprazole (AbiLIFY) 2 mg QHS PO 03/06/20 21:00 03/11/20 11:15 DC 03/10/20 21:06 Benztropine Mesylate (Cogentin) 0.5 mg BID PO 03/13/20 21:00 03/13/20 16:33 DC Benztropine Mesylate (Cogentin) 0.5 mg BIDP PRN PO EPS 03/11/20 11:15 Cancel Diphenhydramine HCl (Benadryl) 50 mg Q4HP PRN PO EPS 03/13/20 17:00 03/22/20 17:40 Diphenhydramine HCl (Benadryl) 50 mg STAT STAT PO 03/09/20 11:38 03/09/20 11:40 DC 03/09/20 11:57 Diphenhydramine HCl (Benadryl) 50 mg STAT STAT PO 03/10/20 11:23 03/10/20 11:27 DC 03/10/20 11:36 Haloperidol (Haldol) 5 mg Q8HP PRN PO AGITATION 03/11/20 11:30 Haloperidol (Haldol) 5 mg TID PO 03/11/20 09:00 03/18/20 10:21 DC 03/18/20 09:55 Haloperidol (Haldol) 10 mg BID PO 03/18/20 21:00 03/23/20 08:21 Haloperidol (Haldol) 10 mg STAT STAT PO 03/09/20 11:38 03/09/20 11:40 DC 03/09/20 11:57 Haloperidol (Haldol) 10 mg STAT STAT PO 03/10/20 11:23 03/10/20 11:27 DC 03/10/20 11:36 Home Med (Med Rec Complete!) ASDIRECTED XX 03/06/20 01:15 03/06/20 01:06 DC Lorazepam (Ativan) 2 mg STAT STAT PO 03/09/20 11:38 03/09/20 11:40 DC 03/09/20 11:57 Lorazepam (Ativan) 2 mg STAT STAT PO 03/10/20 11:23 03/10/20 11:27 DC 03/10/20 11:37 Magnesium Hydroxide (Milk Of Magnesia) 30 ml DAILYPRN PRN PO CONSTIPATION 03/06/20 03:30 Olanzapine (ZyPREXA ZYDIS) 5 mg BID PO 03/08/20 09:00 03/11/20 11:19 DC 03/10/20 21:06 Olanzapine (ZyPREXA ZYDIS) 5 mg Q4HP PRN PO ANXIETY/AGITATION 03/06/20 03:30 03/11/20 11:19 DC Trazodone HCl (Desyrel) 50 mg QHSP PRN PO INSOMNIA 03/06/20 03:30 Allergies Coded Allergies: No Known Allergies (Unverified , 03/05/20) ROBERT MURILLO PLANT OPERATOR/SHIFT SUPERVISOR Mar 23, 2020 10:07
[2020-03-23 16:37] VITALS: BP 115/68
[2020-03-23] MEDS: diphenhydrAMINE 50MG CAP PO PRN (19:24)
[2020-03-24 07:18] VITALS: BP 132/74
[2020-03-24] MEDS ORDERED: HALOPERIDOL DECANOATE 100 MG/ML VIAL (J1631) IM SCH (09:00)
[2020-03-24] MEDS: haloperidoL 5 MG TAB PO SCH ×2 (09:32→22:58)
--- NOTE | 2020-03-24 15:39 | MHIPNPDOC ---
[facility] Progress Note Progress Note DATE OF SERVICE: 03/24/20 HISTORY:Patient is a 40 year old Single, Male who was brought into ED on a pickup order. According to the ED, patient was brought in by police, found to be yelling that perhaps he may have been robbed at knifepoint. He was observed to be confused, disorganized and had altered mental status. VITAL SIGNS: See below. NEW TEST RESULTS: CURRENT MEDICATIONS: See below. Patient is a 40-year old male, who is a 2P to [facility] for psychotic, bizarre and delusional thinking. He appears his stated age, his hair is buzzed cut, his hygiene and grooming is fair. His eye contact is improved, he makes longer eye contact. He is not observed as restless and or agitated. Speech: Patient's speech is fluid, spontaneous, normal tone and volume. He has mild halting conversations and at times struggles for the right word. Language : intact Thought processes including: reality based, linear and goal oriented, but at times disorganized Thought content: denies depression, anxiety or suicidal/homicidal ideation. Abstract reasoning, and computation: improved Description of associations: denies and none observed Description of abnormal or psychotic thoughts: increased linear thinking Judgment: fair Insight: fair Orientation: alert and oriented to self, place and situation Recent and remote memory: fair Attention span and concentration: fair Language: fair Fund of knowledge: average Mood: Reports no depression. Euthymic Affect: reactive DIAGNOSES: 1. Schizophrenia, Paranoid Type 2. Unspecified Schizophrenia and Other Psychotic Disorders ASSESSMENT: Patient observed with continued improvements, he entered my office and states "I don't want the shot, I only want the pills," Later in the day, patient had taken the Haldol Decanoate. He is improving and he is getting close to being discharged. He has a behavioral health case manager who can assist with housing for the patient. This is a patient who is historically non-compliant with medications, has been diagnosed Schizophrenia, Paranoid Type per TLS. He continues to have linear and logical conversation but does however will shout out one word sentences randomly in the hallway or to staff. He has not been aggressive or agitated on the unit since he started the oral Haldol dose. MANAGEMENT PLAN: Continue all medications as ordered. Discharge when he is stable and has safe housing. TIME SPENT: 25 minutes. Vital Signs Vital Signs Date Time Temp Pulse Resp B/P (MAP) Pulse Ox O2 Delivery O2 Flow Rate FiO2 03/24/20 07:18 96.8 70 18 132/74 (93) 03/22/20 06:17 99 Room Air Current Medications Current Medications Medications (Trade) Dose Ordered Sig/Ignacio Route PRN Reason Start Time Stop Time Status Last Admin Dose Admin Acetaminophen (Tylenol Tab) 650 mg Q6HP PRN PO HEADACHE or DISCOMFORT 03/06/20 03:30 Al Hydrox/Mg Hydrox/Simethicone (Mylanta) 30 ml Q4HP PRN PO HEARTBURN/INDIGESTION 03/06/20 03:30 Aripiprazole (AbiLIFY) 2 mg QHS PO 03/06/20 21:00 03/11/20 11:15 DC 03/10/20 21:06 Benztropine Mesylate (Cogentin) 0.5 mg BID PO 03/13/20 21:00 03/13/20 16:33 DC Benztropine Mesylate (Cogentin) 0.5 mg BIDP PRN PO EPS 03/11/20 11:15 Cancel Diphenhydramine HCl (Benadryl) 50 mg Q4HP PRN PO EPS 03/13/20 17:00 03/23/20 19:24 Diphenhydramine HCl (Benadryl) 50 mg STAT STAT PO 03/09/20 11:38 03/09/20 11:40 DC 03/09/20 11:57 Diphenhydramine HCl (Benadryl) 50 mg STAT STAT PO 03/10/20 11:23 03/10/20 11:27 DC 03/10/20 11:36 Haloperidol (Haldol) 5 mg Q8HP PRN PO AGITATION 03/11/20 11:30 Haloperidol (Haldol) 5 mg TID PO 03/11/20 09:00 03/18/20 10:21 DC 03/18/20 09:55 Haloperidol (Haldol) 10 mg BID PO 03/18/20 21:00 03/24/20 09:32 Haloperidol (Haldol) 10 mg STAT STAT PO 03/09/20 11:38 03/09/20 11:40 DC 03/09/20 11:57 Haloperidol (Haldol) 10 mg STAT STAT PO 03/10/20 11:23 03/10/20 11:27 DC 03/10/20 11:36 Haloperidol Decanoate (Haldol Decanoate) 100 mg Q28D IM 03/24/20 09:00 03/24/20 10:20 Home Med (Med Rec Complete!) ASDIRECTED XX 03/06/20 01:15 03/06/20 01:06 DC Lorazepam (Ativan) 2 mg STAT STAT PO 03/09/20 11:38 03/09/20 11:40 DC 03/09/20 11:57 Lorazepam (Ativan) 2 mg STAT STAT PO 03/10/20 11:23 03/10/20 11:27 DC 03/10/20 11:37 Magnesium Hydroxide (Milk Of Magnesia) 30 ml DAILYPRN PRN PO CONSTIPATION 03/06/20 03:30 Olanzapine (ZyPREXA ZYDIS) 5 mg BID PO 03/08/20 09:00 03/11/20 11:19 DC 03/10/20 21:06 Olanzapine (ZyPREXA ZYDIS) 5 mg Q4HP PRN PO ANXIETY/AGITATION 03/06/20 03:30 03/11/20 11:19 DC Trazodone HCl (Desyrel) 50 mg QHSP PRN PO INSOMNIA 03/06/20 03:30 Allergies Coded Allergies: No Known Allergies (Unverified , 03/05/20) ROBERT MURILLO PLASTICS WORKER Mar 24, 2020 15:39
[2020-03-24 16:51] VITALS: BP 106/62
[2020-03-24] MEDS: diphenhydrAMINE 50MG CAP PO PRN ×2 (18:47→22:58)
[2020-03-25] MEDS: haloperidoL 5 MG TAB PO SCH ×2 (10:10→21:15)
--- NOTE | 2020-03-25 16:51 | MHIPNPDOC ---
[facility] Progress Note Progress Note DATE OF SERVICE: 03/25/20 HISTORY:Patient is a 40 year old Single, Male who was brought into ED on a pickup order. According to the ED, patient was brought in by police, found to be yelling that perhaps he may have been robbed at knifepoint. He was observed to be confused, disorganized and had altered mental status. Per TLS, he has a history of Schizophrenia, paranoid type VITAL SIGNS: See below. NEW TEST RESULTS: CURRENT MEDICATIONS: See below. Patient is a 40-year old male, who is a 2PC to [facility] for psychotic, bizarre and delusional thinking. He appears his stated age, his hygiene and grooming is fair. His eye contact is good Speech: Patient's speech is fluid, spontaneous, normal tone and volume. He has mild halting conversations and at times struggles for the right word. Language : intact Thought processes including: reality based, linear and goal oriented, but at times disorganized Thought content: denies depression, anxiety or suicidal/homicidal ideation. Abstract reasoning, and computation: improved Description of associations: denies and none observed Description of abnormal or psychotic thoughts: increased linear thinking Judgment: fair Insight: fair Orientation: alert and oriented to self, place and situation Recent and remote memory: fair Attention span and concentration: fair Language: fair Fund of knowledge: average Mood: "I am even keeled, I feel like it's the middle of the road." Euthymic Affect: reactive DIAGNOSES: 1. Schizophrenia, Paranoid Type 2. Unspecified Schizophrenia and Other Psychotic Disorders ASSESSMENT: Patient was withdrawn today, stayed in his room most of the day. During the interview, he stated that he was not having any pain, when asked why he was in bed most of the shift, stated that he was bored. Patient wants to try to find housing, at this time he is closer to discharge, but we are waiting to hear from TLS and case management about safe housing. MANAGEMENT PLAN: Continue all medications as ordered. 2nd KENNEDY ordered for Sunday Haldol 100 mg IM. Patient is agreeable. Medications were discussed with pharmacy. Discharge when he is stable and has safe housing. TIME SPENT: 25 minutes. Vital Signs Vital Signs Date Time Temp Pulse Resp B/P (MAP) Pulse Ox O2 Delivery O2 Flow Rate FiO2 03/24/20 16:51 98.8 82 16 106/62 (77) 03/22/20 06:17 99 Room Air Current Medications Current Medications Medications (Trade) Dose Ordered Sig/Ignacio Route PRN Reason Start Time Stop Time Status Last Admin Dose Admin Acetaminophen (Tylenol Tab) 650 mg Q6HP PRN PO HEADACHE or DISCOMFORT 03/06/20 03:30 Al Hydrox/Mg Hydrox/Simethicone (Mylanta) 30 ml Q4HP PRN PO HEARTBURN/INDIGESTION 03/06/20 03:30 Aripiprazole (AbiLIFY) 2 mg QHS PO 03/06/20 21:00 03/11/20 11:15 DC 03/10/20 21:06 Benztropine Mesylate (Cogentin) 0.5 mg BID PO 03/13/20 21:00 03/13/20 16:33 DC Benztropine Mesylate (Cogentin) 0.5 mg BIDP PRN PO EPS 03/11/20 11:15 Cancel Diphenhydramine HCl (Benadryl) 50 mg Q4HP PRN PO EPS 03/13/20 17:00 03/24/20 22:58 Diphenhydramine HCl (Benadryl) 50 mg STAT STAT PO 03/09/20 11:38 03/09/20 11:40 DC 03/09/20 11:57 Diphenhydramine HCl (Benadryl) 50 mg STAT STAT PO 03/10/20 11:23 03/10/20 11:27 DC 03/10/20 11:36 Haloperidol (Haldol) 5 mg Q8HP PRN PO AGITATION 03/11/20 11:30 Haloperidol (Haldol) 5 mg TID PO 03/11/20 09:00 03/18/20 10:21 DC 03/18/20 09:55 Haloperidol (Haldol) 10 mg BID PO 03/18/20 21:00 03/25/20 10:10 Haloperidol (Haldol) 10 mg STAT STAT PO 03/09/20 11:38 03/09/20 11:40 DC 03/09/20 11:57 Haloperidol (Haldol) 10 mg STAT STAT PO 03/10/20 11:23 03/10/20 11:27 DC 03/10/20 11:36 Haloperidol Decanoate (Haldol Decanoate) 100 mg Q28D IM 03/24/20 09:00 03/24/20 10:20 Home Med (Med Rec Complete!) ASDIRECTED XX 03/06/20 01:15 03/06/20 01:06 DC Lorazepam (Ativan) 2 mg STAT STAT PO 03/09/20 11:38 03/09/20 11:40 DC 03/09/20 11:57 Lorazepam (Ativan) 2 mg STAT STAT PO 03/10/20 11:23 03/10/20 11:27 DC 03/10/20 11:37 Magnesium Hydroxide (Milk Of Magnesia) 30 ml DAILYPRN PRN PO CONSTIPATION 03/06/20 03:30 Olanzapine (ZyPREXA ZYDIS) 5 mg BID PO 03/08/20 09:00 03/11/20 11:19 DC 03/10/20 21:06 Olanzapine (ZyPREXA ZYDIS) 5 mg Q4HP PRN PO ANXIETY/AGITATION 03/06/20 03:30 03/11/20 11:19 DC Trazodone HCl (Desyrel) 50 mg QHSP PRN PO INSOMNIA 03/06/20 03:30 Allergies Coded Allergies: No Known Allergies (Unverified , 03/05/20) ROBERT MURILLO NP Mar 25, 2020 16:51
[2020-03-25] MEDS: diphenhydrAMINE 50MG CAP PO PRN (23:22)
[2020-03-26 06:48] VITALS: BP 118/75
[2020-03-26] MEDS: haloperidoL 5 MG TAB PO SCH ×2 (09:15→20:13)
--- NOTE | 2020-03-26 14:59 | MHIPNPDOC ---
[facility] Progress Note Progress Note DATE OF SERVICE: 03/26/20 HISTORY:Patient is a 40 year old Single, Male who was brought into ED on a pickup order. According to the ED, patient was brought in by police, found to be yelling that perhaps he may have been robbed at knifepoint. He was observed to be confused, disorganized and had altered mental status. Per TLS, he has a history of Schizophrenia, paranoid type VITAL SIGNS: See below. NEW TEST RESULTS: CURRENT MEDICATIONS: See below. Patient is a 40-year old male, who is a 2PC to [facility] for psychotic, bizarre and delusional thinking. He appears his stated age, his hygiene and grooming is fair. His eye contact is good Speech: Patient's speech is fluid, spontaneous, normal tone and volume Language : intact Thought processes including: reality based, linear and goal oriented Thought content: denies depression, anxiety or suicidal/homicidal ideation. Abstract reasoning, and computation: improved Description of associations: denies and none observed Description of abnormal or psychotic thoughts: none observed Judgment: fair Insight: fair Orientation: alert and oriented to self, place and situation Recent and remote memory: fair Attention span and concentration: fair Language: fair Fund of knowledge: average Mood: "good." Euthymic Affect: reactive DIAGNOSES: 1. Schizophrenia, Paranoid Type 2. Unspecified Schizophrenia and Other Psychotic Disorders ASSESSMENT: Patient was withdrawn again today, stayed in his room most of the day. Patient states that he would be agreeable to [address]. He states that he was hoping to be discharged but at this time we are attempting to get case management and definitive housing for the patient. We need to have this in place as it would be futile to discharge patient as his rehospitalizat ion would probably be immediate without case management, he has a history of poor compliance with treatment. He has a history of aggression and violent behaviors without medications. Currently he is taking Haldol Decanoate and says that he can maintain this regimen, we feel that it is imperative for the patient to have intense services to minimize/reduce rehospitalizations. MANAGEMENT PLAN: Continue all medications as ordered. 2nd KENNEDY ordered for Sunday Haldol 100 mg IM. Patient is agreeable. Medications were discussed with pharmacy. Discharge when he is stable and has safe housing. TIME SPENT: 15 minutes. Vital Signs Vital Signs Date Time Temp Pulse Resp B/P (MAP) Pulse Ox O2 Delivery O2 Flow Rate FiO2 03/26/20 06:48 98.1 79 16 118/75 (89) 96 Room Air Current Medications Current Medications Medications (Trade) Dose Ordered Sig/Ignacio Route PRN Reason Start Time Stop Time Status Last Admin Dose Admin Acetaminophen (Tylenol Tab) 650 mg Q6HP PRN PO HEADACHE or DISCOMFORT 03/06/20 03:30 Al Hydrox/Mg Hydrox/Simethicone (Mylanta) 30 ml Q4HP PRN PO HEARTBURN/INDIGESTION 03/06/20 03:30 Aripiprazole (AbiLIFY) 2 mg QHS PO 03/06/20 21:00 03/11/20 11:15 DC 03/10/20 21:06 Benztropine Mesylate (Cogentin) 0.5 mg BID PO 03/13/20 21:00 03/13/20 16:33 DC Benztropine Mesylate (Cogentin) 0.5 mg BIDP PRN PO EPS 03/11/20 11:15 Cancel Diphenhydramine HCl (Benadryl) 50 mg Q4HP PRN PO EPS 03/13/20 17:00 03/25/20 23:22 Diphenhydramine HCl (Benadryl) 50 mg STAT STAT PO 03/09/20 11:38 03/09/20 11:40 DC 03/09/20 11:57 Diphenhydramine HCl (Benadryl) 50 mg STAT STAT PO 03/10/20 11:23 03/10/20 11:27 DC 03/10/20 11:36 Haloperidol (Haldol) 5 mg Q8HP PRN PO AGITATION 03/11/20 11:30 Haloperidol (Haldol) 5 mg TID PO 03/11/20 09:00 03/18/20 10:21 DC 03/18/20 09:55 Haloperidol (Haldol) 10 mg BID PO 03/18/20 21:00 03/26/20 09:15 Haloperidol (Haldol) 10 mg STAT STAT PO 03/09/20 11:38 03/09/20 11:40 DC 03/09/20 11:57 Haloperidol (Haldol) 10 mg STAT STAT PO 03/10/20 11:23 03/10/20 11:27 DC 03/10/20 11:36 Haloperidol Decanoate (Haldol Decanoate) 100 mg Q28D IM 03/24/20 09:00 03/24/20 10:20 Home Med (Med Rec Complete!) ASDIRECTED XX 03/06/20 01:15 03/06/20 01:06 DC Lorazepam (Ativan) 2 mg STAT STAT PO 03/09/20 11:38 03/09/20 11:40 DC 03/09/20 11:57 Lorazepam (Ativan) 2 mg STAT STAT PO 03/10/20 11:23 03/10/20 11:27 DC 03/10/20 11:37 Magnesium Hydroxide (Milk Of Magnesia) 30 ml DAILYPRN PRN PO CONSTIPATION 03/06/20 03:30 Olanzapine (ZyPREXA ZYDIS) 5 mg BID PO 03/08/20 09:00 03/11/20 11:19 DC 03/10/20 21:06 Olanzapine (ZyPREXA ZYDIS) 5 mg Q4HP PRN PO ANXIETY/AGITATION 03/06/20 03:30 03/11/20 11:19 DC Trazodone HCl (Desyrel) 50 mg QHSP PRN PO INSOMNIA 03/06/20 03:30 Allergies Coded Allergies: No Known Allergies (Unverified , 03/05/20) ROBERT MURILLO TIRE CENTER MANAGER Mar 26, 2020 14:40
[2020-03-26 16:15] VITALS: BP 119/71
[2020-03-26] MEDS: diphenhydrAMINE 50MG CAP PO PRN (20:13)
[2020-03-27 06:26] VITALS: BP 107/60
[2020-03-27] MEDS: haloperidoL 5 MG TAB PO SCH ×2 (09:26→20:32)
[2020-03-27] MEDS: diphenhydrAMINE 50MG CAP PO PRN ×2 (16:08→20:32)
[2020-03-27 16:34] VITALS: BP 122/64
[2020-03-28 06:23] VITALS: BP 116/63
[2020-03-28] MEDS ORDERED: HALOPERIDOL DECANOATE 100 MG/ML VIAL (J1631) IM ONE (09:00)
[2020-03-28] MEDS: haloperidoL 5 MG TAB PO SCH ×2 (09:14→22:04)
[2020-03-28] MEDS: diphenhydrAMINE 50MG CAP PO PRN (15:49)
[2020-03-28 16:41] VITALS: BP 106/59
[2020-03-28] MEDS ORDERED: diphenhydrAMINE 50MG CAP PO ONE (18:00)
[2020-03-28] MEDS ORDERED: LORazepam 1 MG TAB PO ONE (18:00)
[2020-03-29 06:48] VITALS: BP 123/62
[2020-03-29] MEDS: haloperidoL 5 MG TAB PO SCH ×2 (09:24→20:30)
--- NOTE | 2020-03-29 13:27 | MHIPNPDOC ---
[facility] Progress Note Progress Note DATE OF SERVICE: 03/29/20 HISTORY:Patient is a 40 year old Single, Male who was brought into ED on a pickup order. According to the ED, patient was brought in by police, found to be yelling that perhaps he may have been robbed at knifepoint. He was observed to be confused, disorganized and had altered mental status. Per TLS, he has a history of Schizophrenia, paranoid type VITAL SIGNS: See below. NEW TEST RESULTS: CURRENT MEDICATIONS: See below. Patient is a 40-year old male, who is a 2PC to [facility] for psychotic, bizarre and delusional thinking. He appears his stated age, his hygiene and grooming is fair. His eye contact is good Speech: Patient's speech is fluid, spontaneous, normal tone and volume Language : intact Thought processes including: reality based, linear and goal oriented Thought content: denies depression, anxiety or suicidal/homicidal ideation. Abstract reasoning, and computation: improved Description of associations: denies and none observed Description of abnormal or psychotic thoughts: none observed Judgment: fair to good Insight: fair to good Orientation: alert and oriented to self, place and situation Recent and remote memory: fair Attention span and concentration: good Language: fair Fund of knowledge: average Mood: "good." Euthymic Affect: reactive DIAGNOSES: 1. Schizophrenia, Paranoid Type 2. Unspecified Schizophrenia and Other Psychotic Disorders ASSESSMENT: Patient was withdrawn again today, stayed in his room most of the day. At this time, he has been compliant with his medications, is not observed with psychosis, disorganized and scattered thinking. He is not agitated or irritable. Patient is requesting discharge and states that he is agreeable to case management. He is returning to his apartment and he is aware that he has only a 2 week window in which he needs to fund other housing. Patient's mentation is improved but he does have moments of odd behaviors. It was reported to shoe lay out planner by his mother, that patient at his baseline has odd behaviors and is scattered. Based on this report, patient is considered at this baseline and we must discharge him. MANAGEMENT PLAN: Continue all medications as ordered. Patient is stable for discharge tomorrow. TIME SPENT: 15 minutes. Vital Signs Vital Signs Date Time Temp Pulse Resp B/P (MAP) Pulse Ox O2 Delivery O2 Flow Rate FiO2 03/29/20 06:48 98.6 79 12 123/62 (82) Room Air 03/28/20 06:23 96 Current Medications Current Medications Medications (Trade) Dose Ordered Sig/Ignacio Route PRN Reason Start Time Stop Time Status Last Admin Dose Admin Acetaminophen (Tylenol Tab) 650 mg Q6HP PRN PO HEADACHE or DISCOMFORT 03/06/20 03:30 Al Hydrox/Mg Hydrox/Simethicone (Mylanta) 30 ml Q4HP PRN PO HEARTBURN/INDIGESTION 03/06/20 03:30 Aripiprazole (AbiLIFY) 2 mg QHS PO 03/06/20 21:00 03/11/20 11:15 DC 03/10/20 21:06 Benztropine Mesylate (Cogentin) 0.5 mg BID PO 03/13/20 21:00 03/13/20 16:33 DC Benztropine Mesylate (Cogentin) 0.5 mg BIDP PRN PO EPS 03/11/20 11:15 Cancel Diphenhydramine HCl (Benadryl) 50 mg Q4HP PRN PO EPS 03/13/20 17:00 03/28/20 15:49 Diphenhydramine HCl (Benadryl) 50 mg STAT STAT PO 03/09/20 11:38 03/09/20 11:40 DC 03/09/20 11:57 Diphenhydramine HCl (Benadryl) 50 mg STAT STAT PO 03/10/20 11:23 03/10/20 11:27 DC 03/10/20 11:36 Haloperidol (Haldol) 5 mg Q8HP PRN PO AGITATION 03/11/20 11:30 Haloperidol (Haldol) 5 mg TID PO 03/11/20 09:00 03/18/20 10:21 DC 03/18/20 09:55 Haloperidol (Haldol) 10 mg BID PO 03/18/20 21:00 03/29/20 09:24 Haloperidol (Haldol) 10 mg STAT STAT PO 03/09/20 11:38 03/09/20 11:40 DC 03/09/20 11:57 Haloperidol (Haldol) 10 mg STAT STAT PO 03/10/20 11:23 03/10/20 11:27 DC 03/10/20 11:36 Haloperidol Decanoate (Haldol Decanoate) 100 mg Q28D IM 03/24/20 09:00 03/24/20 10:20 Home Med (Med Rec Complete!) ASDIRECTED XX 03/06/20 01:15 03/06/20 01:06 DC Lorazepam (Ativan) 2 mg STAT STAT PO 03/09/20 11:38 03/09/20 11:40 DC 03/09/20 11:57 Lorazepam (Ativan) 2 mg STAT STAT PO 03/10/20 11:23 03/10/20 11:27 DC 03/10/20 11:37 Magnesium Hydroxide (Milk Of Magnesia) 30 ml DAILYPRN PRN PO CONSTIPATION 03/06/20 03:30 Olanzapine (ZyPREXA ZYDIS) 5 mg BID PO 03/08/20 09:00 03/11/20 11:19 DC 03/10/20 21:06 Olanzapine (ZyPREXA ZYDIS) 5 mg Q4HP PRN PO ANXIETY/AGITATION 03/06/20 03:30 03/11/20 11:19 DC Trazodone HCl (Desyrel) 50 mg QHSP PRN PO INSOMNIA 03/06/20 03:30 Allergies Coded Allergies: No Known Allergies (Unverified , 03/05/20) ROBERT MURILLO NP Mar 29, 2020 13:27
[2020-03-29 18:03] VITALS: BP 140/88
[2020-03-29] MEDS: diphenhydrAMINE 50MG CAP PO PRN (20:31)
[2020-03-30 06:45] VITALS: BP 116/65
[2020-03-30] MEDS: haloperidoL 5 MG TAB PO SCH (08:39)
[2020-03-30] MEDS ORDERED: DIPH50CA PO (10:21)
[2020-03-30] MEDS ORDERED: HALO10AM IM (10:21)
[2020-03-30] MEDS ORDERED: HALO5TA PO (10:21)
--- NOTE | 2020-03-30 11:10 | MHDSPDOC ---
[facility] Discharge Summary Discharge Summary DATE OF ADMISSION: Mar 06, 2020 at 03:27 DATE OF DISCHARGE: March 30, 2020 at 1100 DISCHARGE DIAGNOSES: Schizophrenia, paranoid type REASON FOR ADMISSION: Patient is a 40 year old Single, Male who was brought into ED on a pickup order. According to the ED, patient was brought in by police, found to be yelling that perhaps he may have been robbed at knifepoint. He was observed to be confused, disorganized and had altered mental status. Per TLS, he has a history of Schizophrenia, paranoid type CONSULTANTS INVOLVED: see Medical H + P by Hospitalist TREATMENT AND PROGRESS ON THE UNIT : Patient was admitted to the [facility] on a 9.39 legal status he was afforded the following treatment modalities: 1) Individual Therapy 2) Group Therapy 3) Medication Management 4) Milieu Therapy 5) Safe Environment HOSPITAL COURSE: Patient was admitted to [facility] on a 9.39 legal status and subsequently was placed on 2 PC legal status. He had been non-compliant with medications in the community and decompensated. According to TLS, patient has a diagnosis of Schizophrenia, paranoid type and was not compliant with medi cations. He was initially aggressive on the unit, was walking with moderate aggression in his gait and yell out random one word sentences (Word Salad). He refused Zyprexa and ultimately he was compliant with Haldol but he had word salad, neologisms and clang associations. He was agreeable to Haldol Decanoate and this seemed to clear him exponentially. DISCHARGE ASSESSMENT: Patient was was found sleeping in his room where he has been most of the day. At this time, he has been compliant with his medications, is not observed with psychosis, disorganized and scattered thinking. He is not agitated or irritable. Patient is requesting discharge and states that he is agreeable to case management. He is returning to his apartment and he is aware that he has only a 2 week window in which he needs to fund other housing. Patient's mentation is improved but he does have moments of odd behaviors. It was reported to farm planner by his mother, that patient at his baseline has odd behaviors and is scattered. Based on this report, patient is considered at this baseline and we must discharge him. MENTAL STATUS EXAMINATION ON DISCHARGE: Patient is a 40 year old Single, Disabled, Domiciled Male who was brought into ED on a pickup order. Speech: Is fluid, impoverished at times, but he can be conversant when he wants to be, normal rate, tone and volume Language skills are intact Thought processes including: linear and goal oriented Thought content: reports depression and anxiety. Abstract reasoning, and computation: fair Description of associations: denies, none observed Description of abnormal or psychotic thoughts: denies, none observed. Judgment: fair Insight: fair Orientation: alert and oriented to person, place, time and situation Recent and remote memory: intact Attention span and concentration: good Language: expansive Fund of knowledge: below average Mood: euthymic Affect: reactive MEDICATIONS ON DISCHARGE: Haldol Decanoate 200 mg IM due 04/26/20 Haldol 10 mg BID Benadryl 50 mg BID PRN for EPS PLAN/FOLLOWUP ARRANGEMENTS: [facility] The amount of time spent in the coordination of care for this patient was approximately 20 minutes. Vital Signs/I&Os Vital Signs Date Time Temp Pulse Resp B/P (MAP) Pulse Ox O2 Delivery O2 Flow Rate FiO2 03/30/20 06:45 97.9 71 16 116/65 (82) 03/29/20 06:48 Room Air 03/28/20 06:23 96 Medications Scheduled Haloperidol (Haloperidol) 5 Mg Tablet, 10 MG PO BID for Antipsychotic, #14 Haloperidol Decanoate (Haloperidol Decanoate) 100 Mg/1 Ml Vial, 200 MG IM Q28D for Antipsychotic, #1 Next dose due on 04/26/20 Scheduled PRN Diphenhydramine HCl (Diphenhydramine HCl) 50 Mg Capsule, 50 MG PO BID PRN for EPS, #14 Allergies Coded Allergies: No Known Allergies (Unverified , 03/05/20) ROBERT MURILLO HOT WORKER Mar 30, 2020 11:01
== END 2020-03-30 12:30 | disposition home or self-care (01) | DRG 885 ==
LOC: M ED 23:42 → M ED INP 03-06 03:27 → M PSY 03-06 04:43
PROVIDERS: ADMIT Psychiatry & Neurology Psychiatry; ATTEND Psychiatry & Neurology Psychiatry
DX: F20.0 Paranoid schizophrenia (principal); Z91.14 Patient's other noncompliance with medication regimen

== ENCOUNTER 2021-09-23 13:24 | Inpatient (IN) | payer MEDICAID, MEDICARE, OTHER ==
[~2021-09-23] VITALS: Ht 177.8 cm; Wt 83.5 kg
[~2021-09-23 13:24] MED LIST: DIPH50CA PO; HALO10AM IM; HALO5TAB33 PO
[2021-09-23 14:28] LABS: HEMOGLOBIN 15.4 g/dl (13.5-17.5); MEAN CORPUSCULAR HEMOGLOBIN 31.3 pg (27.0-33.0); MEAN CORPUSCULAR HGB CONC 35.8 g/dl (32.0-36.5); MEAN CORPUSCULAR VOLUME 87.4 fl (80.0-96.0); PLATELET COUNT, AUTOMATED 151 10^3/uL (150-450); RED BLOOD COUNT 4.92 10^6/uL (4.30-6.10); WHITE BLOOD COUNT 4.5 10^3/uL (4.0-10.0)
[2021-09-23] MEDS ORDERED: OLANZapine ORAL DISINTEGRATING TAB 5MG PO ONE (14:45)
[2021-09-23 14:59] LABS: RSV AMPLIFICATION NEGATIVE (NEGATIVE)
[2021-09-23 15:15] LABS: ACETAMINOPHEN LEVEL < 2.0 UG/ML (10.0-30.0); ALBUMIN 4.1 GM/DL (3.2-5.2); ALT/SGPT 24 U/L (12-78); BILIRUBIN,DIRECT 0.2 MG/DL (0.0-0.2); BILIRUBIN,TOTAL 0.8 MG/DL (0.2-1.0); BLOOD UREA NITROGEN 17 MG/DL (7-18); CALCIUM LEVEL 9.2 MG/DL (8.5-10.1); CARBON DIOXIDE LEVEL 29 MEQ/L (21-32); CHLORIDE LEVEL 110 MEQ/L (98-107); ETHYL ALCOHOL (ETHANOL) < 0.003 % (0.000-0.010); GLOMERULAR FILTRATION RATE > 60.0 (>60); GLUCOSE, FASTING 118 MG/DL (70-100); POTASSIUM SERUM 3.9 MEQ/L (3.5-5.1); SALICYLATE LEVEL < 1.7 MG/DL (5.0-30.0); SODIUM LEVEL 141 MEQ/L (136-145); TOTAL PROTEIN 6.9 GM/DL (6.4-8.2)
[2021-09-23 15:53] LABS: AMPHETAMINES LEVEL URINE NEGATIVE (NEGATIVE); BARBITURATES URINE NEGATIVE (NEGATIVE); BENZODIAZEPINES URINE NEGATIVE (NEGATIVE); CANNABINOIDS URINE NEGATIVE (NEGATIVE); COCAINE METABOLITE URINE NEGATIVE (NEGATIVE); METHADONE URINE NEGATIVE (NEGATIVE); OPIATES URINE NEGATIVE (NEGATIVE); PHENCYCLIDINE URINE NEGATIVE (NEGATIVE)
[2021-09-23] MEDS ORDERED: HOME MED LIST COMPLETE! XX SCH (16:30)
[2021-09-25] MEDS ORDERED: LORazepam 2 MG TAB PO PRN (16:50)
[2021-09-26] MEDS ORDERED: MOM 30ML SUSPENSION UDC PO PRN (14:10)
[2021-09-26] MEDS ORDERED: LORazepam 1 MG TAB PO PRN (14:10)
[2021-09-26] MEDS ORDERED: traZODone 50 MG TAB PO PRN (14:10)
[2021-09-26] MEDS ORDERED: MAALOX 30 ML SUSP *UDC PO PRN (14:10)
[2021-09-26] MEDS ORDERED: IBUPROFEN 400MG TAB PO PRN (14:10)
[2021-09-26] MEDS: NICOTINE 21MG/24HR 1 EA TRANSDERMAL TD SCH (14:46)
[2021-09-26 19:20] VITALS: BP 146/72
[2021-09-27 07:11] VITALS: BP 136/71
[2021-09-27] MEDS: NICOTINE 21MG/24HR 1 EA TRANSDERMAL TD SCH (08:36)
[2021-09-27] MEDS: diphenhydrAMINE 25MG CAP PO PRN (14:45)
[2021-09-27 19:19] VITALS: BP 106/69
[2021-09-28 06:48] VITALS: BP 99/75
[2021-09-28] MEDS: NICOTINE 21MG/24HR 1 EA TRANSDERMAL TD SCH (10:44)
[2021-09-28 17:55] VITALS: BP 111/63
[2021-09-28] MEDS: diphenhydrAMINE 25MG CAP PO PRN (20:43)
[2021-09-29 06:21] VITALS: BP 112/74
[2021-09-29] MEDS: NICOTINE 21MG/24HR 1 EA TRANSDERMAL TD SCH (08:34)
[2021-09-29 09:42] LABS: CHOLESTEROL RISK RATIO 3.666 (<5)
[2021-09-29] MEDS: diphenhydrAMINE 25MG CAP PO PRN ×2 (14:22→20:47)
[2021-09-29 18:10] VITALS: BP 117/77
[2021-09-30 06:38] VITALS: BP 119/65
[2021-09-30] MEDS: NICOTINE 21MG/24HR 1 EA TRANSDERMAL TD SCH (09:00)
[2021-09-30] MEDS: BENZTROPINE 1 MG TAB PO SCH ×2 (09:48→20:16)
[2021-09-30] MEDS: diphenhydrAMINE 25MG CAP PO PRN (20:16)
[2021-10-01 06:00] VITALS: BP 122/65
[2021-10-01] MEDS: BENZTROPINE 1 MG TAB PO SCH ×2 (08:15→21:00)
[2021-10-01] MEDS: diphenhydrAMINE 25MG CAP PO PRN ×2 (08:15→20:59)
[2021-10-01] MEDS: NICOTINE 21MG/24HR 1 EA TRANSDERMAL TD SCH (08:17)
[2021-10-01 18:00] VITALS: BP 140/73
[2021-10-02] MEDS: NICOTINE 21MG/24HR 1 EA TRANSDERMAL TD SCH (09:00)
[2021-10-02] MEDS: BENZTROPINE 1 MG TAB PO SCH ×2 (09:36→21:18)
[2021-10-02] MEDS: diphenhydrAMINE 25MG CAP PO PRN ×2 (12:09→21:18)
[2021-10-02 18:00] VITALS: BP 107/56
[2021-10-03 06:00] VITALS: BP 123/75
[2021-10-03] MEDS: diphenhydrAMINE 25MG CAP PO PRN ×2 (08:29→21:49)
[2021-10-03] MEDS: BENZTROPINE 1 MG TAB PO SCH ×2 (08:29→21:49)
[2021-10-03] MEDS: NICOTINE 21MG/24HR 1 EA TRANSDERMAL TD SCH (08:30)
[2021-10-03 18:00] VITALS: BP 111/60
[2021-10-04 06:26] VITALS: BP 113/62
[2021-10-04] MEDS: NICOTINE 21MG/24HR 1 EA TRANSDERMAL TD SCH (09:00)
[2021-10-04] MEDS: BENZTROPINE 1 MG TAB PO SCH ×2 (09:24→20:27)
[2021-10-04 18:00] VITALS: BP 105/60
[2021-10-04] MEDS: diphenhydrAMINE 25MG CAP PO PRN (20:27)
[2021-10-05 06:24] VITALS: BP 108/80
[2021-10-05] MEDS: NICOTINE 21MG/24HR 1 EA TRANSDERMAL TD SCH (09:00)
[2021-10-05] MEDS: DIVALPROEX 250 MG TAB PO SCH ×2 (09:00→20:32)
[2021-10-05] MEDS: BENZTROPINE 1 MG TAB PO SCH ×2 (09:42→20:32)
[2021-10-05] MEDS: diphenhydrAMINE 25MG CAP PO PRN ×2 (09:42→20:32)
[2021-10-05 17:28] VITALS: BP 116/54
[2021-10-06 07:04] VITALS: BP 110/59
[2021-10-06] MEDS: NICOTINE 21MG/24HR 1 EA TRANSDERMAL TD SCH (08:43)
[2021-10-06] MEDS: DIVALPROEX 250 MG TAB PO SCH ×2 (08:44→20:43)
[2021-10-06] MEDS: BENZTROPINE 1 MG TAB PO SCH ×2 (08:44→20:43)
[2021-10-06 18:33] VITALS: BP 137/63
[2021-10-06] MEDS: diphenhydrAMINE 25MG CAP PO PRN (20:42)
[2021-10-07] MEDS: NICOTINE 21MG/24HR 1 EA TRANSDERMAL TD SCH (09:00)
[2021-10-07] MEDS: BENZTROPINE 1 MG TAB PO SCH ×2 (09:58→21:10)
[2021-10-07] MEDS: DIVALPROEX 250 MG TAB PO SCH ×2 (09:58→21:10)
[2021-10-07] MEDS: diphenhydrAMINE 25MG CAP PO PRN ×2 (09:59→21:10)
[2021-10-07 17:58] VITALS: BP 147/87
[2021-10-08] MEDS: DIVALPROEX 250 MG TAB PO SCH ×2 (10:01→21:45)
[2021-10-08] MEDS: NICOTINE 21MG/24HR 1 EA TRANSDERMAL TD SCH (10:01)
[2021-10-08] MEDS: BENZTROPINE 1 MG TAB PO SCH ×2 (10:01→21:45)
[2021-10-08] MEDS: diphenhydrAMINE 25MG CAP PO PRN ×2 (12:32→21:45)
[2021-10-08 18:40] VITALS: BP 121/70
[2021-10-09 06:36] VITALS: BP 115/60
[2021-10-09] MEDS: NICOTINE 21MG/24HR 1 EA TRANSDERMAL TD SCH (09:00)
[2021-10-09] MEDS: DIVALPROEX 250 MG TAB PO SCH ×2 (09:50→20:21)
[2021-10-09] MEDS: BENZTROPINE 1 MG TAB PO SCH ×2 (09:50→20:21)
[2021-10-09 18:53] VITALS: BP 108/75
[2021-10-09] MEDS: diphenhydrAMINE 25MG CAP PO PRN (20:21)
[2021-10-10] MEDS: NICOTINE 21MG/24HR 1 EA TRANSDERMAL TD SCH (09:00)
[2021-10-10] MEDS: diphenhydrAMINE 25MG CAP PO PRN ×2 (09:14→20:49)
[2021-10-10] MEDS: BENZTROPINE 1 MG TAB PO SCH ×2 (09:14→20:49)
[2021-10-10] MEDS: DIVALPROEX 250 MG TAB PO SCH ×2 (09:14→20:50)
[2021-10-10 17:55] VITALS: BP 98/53
[2021-10-11 06:21] VITALS: BP 96/56
[2021-10-11] MEDS: NICOTINE 21MG/24HR 1 EA TRANSDERMAL TD SCH (09:00)
[2021-10-11] MEDS: DIVALPROEX 250 MG TAB PO SCH (09:35)
[2021-10-11] MEDS: BENZTROPINE 1 MG TAB PO SCH ×2 (09:35→20:06)
[2021-10-11 18:00] VITALS: BP 130/85
[2021-10-11] MEDS: DIVALPROEX 500 MG TAB PO SCH (20:05)
[2021-10-11] MEDS: diphenhydrAMINE 25MG CAP PO PRN (20:05)
[2021-10-12 07:01] VITALS: BP 96/67
[2021-10-12] MEDS: NICOTINE 21MG/24HR 1 EA TRANSDERMAL TD SCH (09:00)
[2021-10-12] MEDS: DIVALPROEX 500 MG TAB PO SCH ×2 (09:37→20:13)
[2021-10-12] MEDS: BENZTROPINE 1 MG TAB PO SCH ×2 (09:37→20:13)
[2021-10-12 18:00] VITALS: BP 119/65
[2021-10-12] MEDS: diphenhydrAMINE 25MG CAP PO PRN (20:13)
[2021-10-13 06:21] VITALS: BP 110/78
[2021-10-13] MEDS: DIVALPROEX 500 MG TAB PO SCH ×2 (10:31→21:30)
[2021-10-13] MEDS: BENZTROPINE 1 MG TAB PO SCH ×2 (10:31→21:30)
[2021-10-13] MEDS: NICOTINE 21MG/24HR 1 EA TRANSDERMAL TD SCH (10:32)
[2021-10-13 18:23] VITALS: BP 129/76
[2021-10-13] MEDS: diphenhydrAMINE 25MG CAP PO PRN (21:30)
[2021-10-14 06:36] VITALS: BP 112/85
[2021-10-14] MEDS: NICOTINE 21MG/24HR 1 EA TRANSDERMAL TD SCH (08:52)
[2021-10-14] MEDS: BENZTROPINE 1 MG TAB PO SCH ×2 (08:52→21:02)
[2021-10-14] MEDS: DIVALPROEX 500 MG TAB PO SCH (08:52)
[2021-10-14 18:41] VITALS: BP 136/78
[2021-10-14] MEDS: diphenhydrAMINE 25MG CAP PO PRN (21:01)
[2021-10-14] MEDS: DIVALPROEX 250MG *ER* TAB PO SCH (21:03)
[2021-10-15] MEDS: NICOTINE 21MG/24HR 1 EA TRANSDERMAL TD SCH (09:00)
[2021-10-15] MEDS: BENZTROPINE 1 MG TAB PO SCH ×2 (09:03→20:58)
[2021-10-15 18:00] VITALS: BP 104/66
[2021-10-15] MEDS: DIVALPROEX 250MG *ER* TAB PO SCH (20:58)
[2021-10-15] MEDS: diphenhydrAMINE 25MG CAP PO PRN (20:58)
[2021-10-16] MEDS: NICOTINE 21MG/24HR 1 EA TRANSDERMAL TD SCH (09:00)
[2021-10-16] MEDS: BENZTROPINE 1 MG TAB PO SCH ×2 (09:03→20:41)
[2021-10-16 18:00] VITALS: BP 131/87
[2021-10-16] MEDS: diphenhydrAMINE 25MG CAP PO PRN (20:42)
[2021-10-16] MEDS: DIVALPROEX 250MG *ER* TAB PO SCH (20:42)
[2021-10-17] MEDS: NICOTINE 21MG/24HR 1 EA TRANSDERMAL TD SCH (08:34)
[2021-10-17] MEDS: BENZTROPINE 1 MG TAB PO SCH ×2 (08:37→20:39)
[2021-10-17] MEDS: diphenhydrAMINE 25MG CAP PO PRN ×2 (08:37→20:39)
[2021-10-17] MEDS: DIVALPROEX 250MG *ER* TAB PO SCH (20:40)
[2021-10-18 06:34] VITALS: BP 132/62
[2021-10-18] MEDS: NICOTINE 21MG/24HR 1 EA TRANSDERMAL TD SCH (09:00)
[2021-10-18] MEDS: BENZTROPINE 1 MG TAB PO SCH ×2 (09:24→20:45)
[2021-10-18 16:48] VITALS: BP 103/61
[2021-10-18] MEDS: diphenhydrAMINE 25MG CAP PO PRN (20:45)
[2021-10-18] MEDS: DIVALPROEX 250MG *ER* TAB PO SCH (20:46)
[2021-10-19 06:27] VITALS: BP 111/67
[2021-10-19] MEDS: NICOTINE 21MG/24HR 1 EA TRANSDERMAL TD SCH (08:59)
[2021-10-19] MEDS: BENZTROPINE 1 MG TAB PO SCH ×2 (08:59→21:17)
[2021-10-19 16:46] VITALS: BP 106/76
[2021-10-19] MEDS: diphenhydrAMINE 25MG CAP PO PRN (21:15)
[2021-10-19] MEDS: DIVALPROEX 250MG *ER* TAB PO SCH (21:16)
[2021-10-20 06:59] VITALS: BP 104/67
[2021-10-20] MEDS: NICOTINE 21MG/24HR 1 EA TRANSDERMAL TD SCH (09:00)
[2021-10-20] MEDS: BENZTROPINE 1 MG TAB PO SCH ×2 (09:26→20:36)
[2021-10-20] MEDS ORDERED: HALOPERIDOL DECANOATE 100 MG/ML VIAL (J1631) IM ONE (11:30)
[2021-10-20 17:39] VITALS: BP 99/66
[2021-10-20] MEDS: DIVALPROEX 250MG *ER* TAB PO SCH (20:37)
[2021-10-20] MEDS: diphenhydrAMINE 25MG CAP PO PRN (20:37)
[2021-10-21 06:55] VITALS: BP 113/78
[2021-10-21] MEDS: NICOTINE 21MG/24HR 1 EA TRANSDERMAL TD SCH (09:00)
[2021-10-21] MEDS: BENZTROPINE 1 MG TAB PO SCH ×2 (09:09→20:47)
[2021-10-21 16:42] VITALS: BP 106/60
[2021-10-21] MEDS: diphenhydrAMINE 25MG CAP PO PRN (20:47)
[2021-10-21] MEDS: DIVALPROEX 250MG *ER* TAB PO SCH (20:47)
[2021-10-22 06:47] VITALS: BP 110/72
[2021-10-22] MEDS: BENZTROPINE 1 MG TAB PO SCH ×2 (08:35→21:10)
[2021-10-22] MEDS: NICOTINE 21MG/24HR 1 EA TRANSDERMAL TD SCH (08:36)
[2021-10-22 16:35] VITALS: BP 102/67
[2021-10-22] MEDS: diphenhydrAMINE 25MG CAP PO PRN (21:10)
[2021-10-22] MEDS: DIVALPROEX 250MG *ER* TAB PO SCH (21:11)
[2021-10-23 07:04] VITALS: BP 101/57
[2021-10-23] MEDS: NICOTINE 21MG/24HR 1 EA TRANSDERMAL TD SCH (09:00)
[2021-10-23] MEDS: BENZTROPINE 1 MG TAB PO SCH ×2 (09:42→20:52)
[2021-10-23 16:32] VITALS: BP 110/65
[2021-10-23] MEDS: DIVALPROEX 250MG *ER* TAB PO SCH (20:52)
[2021-10-23] MEDS: diphenhydrAMINE 25MG CAP PO PRN (20:52)
[2021-10-24 06:34] VITALS: BP 108/77
[2021-10-24] MEDS: NICOTINE 21MG/24HR 1 EA TRANSDERMAL TD SCH (09:00)
[2021-10-24] MEDS: BENZTROPINE 1 MG TAB PO SCH ×2 (09:23→21:07)
[2021-10-24 18:00] VITALS: BP 131/79
[2021-10-24] MEDS: diphenhydrAMINE 25MG CAP PO PRN (21:06)
[2021-10-24] MEDS: DIVALPROEX 250MG *ER* TAB PO SCH (21:07)
[2021-10-25 07:04] VITALS: BP 141/79
[2021-10-25] MEDS: NICOTINE 21MG/24HR 1 EA TRANSDERMAL TD SCH (08:41)
[2021-10-25] MEDS: BENZTROPINE 1 MG TAB PO SCH ×2 (08:41→21:04)
[2021-10-25] MEDS: diphenhydrAMINE 25MG CAP PO PRN (21:04)
[2021-10-25] MEDS: DIVALPROEX 250MG *ER* TAB PO SCH (21:05)
[2021-10-26 06:29] VITALS: BP 123/83
[2021-10-26] MEDS: NICOTINE 21MG/24HR 1 EA TRANSDERMAL TD SCH (07:46)
[2021-10-26] MEDS: BENZTROPINE 1 MG TAB PO SCH ×2 (07:48→20:23)
[2021-10-26] MEDS ORDERED: HALOPERIDOL DECANOATE 100 MG/ML VIAL (J1631) IM ONE (09:45)
[2021-10-26 18:22] VITALS: BP 145/94
[2021-10-26] MEDS: diphenhydrAMINE 25MG CAP PO PRN (20:22)
[2021-10-26] MEDS: DIVALPROEX 250MG *ER* TAB PO SCH (20:22)
[2021-10-27] MEDS: BENZTROPINE 1 MG TAB PO SCH ×2 (08:35→20:32)
[2021-10-27] MEDS: NICOTINE 21MG/24HR 1 EA TRANSDERMAL TD SCH (08:36)
[2021-10-27 16:50] VITALS: BP 136/70
[2021-10-27] MEDS: DIVALPROEX 250MG *ER* TAB PO SCH (20:32)
[2021-10-28 06:25] VITALS: BP 100/63
[2021-10-28] MEDS: NICOTINE 21MG/24HR 1 EA TRANSDERMAL TD SCH (09:00)
[2021-10-28] MEDS: BENZTROPINE 1 MG TAB PO SCH ×2 (09:01→21:11)
[2021-10-28 18:20] VITALS: BP 132/67
[2021-10-28] MEDS: DIVALPROEX 250MG *ER* TAB PO SCH (21:11)
[2021-10-29 06:24] VITALS: BP 127/83
[2021-10-29] MEDS: BENZTROPINE 1 MG TAB PO SCH ×2 (08:29→21:07)
[2021-10-29] MEDS: NICOTINE 21MG/24HR 1 EA TRANSDERMAL TD SCH (08:30)
[2021-10-29 18:00] VITALS: BP 118/67
[2021-10-29] MEDS: DIVALPROEX 250MG *ER* TAB PO SCH (21:06)
[2021-10-30 06:57] VITALS: BP 115/61
[2021-10-30] MEDS: BENZTROPINE 1 MG TAB PO SCH ×2 (08:02→21:30)
[2021-10-30] MEDS: NICOTINE 21MG/24HR 1 EA TRANSDERMAL TD SCH (08:02)
[2021-10-30] MEDS: DIVALPROEX 250MG *ER* TAB PO SCH (21:30)
[2021-10-31 06:18] VITALS: BP 116/78
[2021-10-31] MEDS: BENZTROPINE 1 MG TAB PO SCH (07:47)
[2021-10-31] MEDS: NICOTINE 21MG/24HR 1 EA TRANSDERMAL TD SCH (07:48)
[2021-10-31] MEDS ORDERED: HALO5TAB33 PO (11:04)
[2021-10-31] MEDS ORDERED: DEPA250T2 PO (11:04)
[2021-10-31] MEDS ORDERED: BENZ-52 PO (11:04)
[2021-10-31] MEDS ORDERED: HALO10TA20 PO (11:25)
[2021-10-31] MEDS ORDERED: HALD100I2 IM (12:53)
== END 2021-10-31 13:28 | disposition home or self-care (01) | DRG 885 ==
LOC: M ED 13:24 → M ED INP 09-26 14:10 → M PSY 09-26 17:01
PROVIDERS: ADMIT Student in an Organized Health Care Education/Training Program; ATTEND Psychiatry & Neurology Psychiatry
DX: F25.9 Schizoaffective disorder, unspecified (principal); F17.200 Nicotine dependence, unspecified, uncomplicated; Z91.14 Patient's other noncompliance with medication regimen; Z79.899 Other long term (current) drug therapy

== ENCOUNTER 2024-09-06 08:36 | Emergency (ER) | payer MEDICAID, MEDICARE ==
[~2024-09-06] VITALS: Ht 182.9 cm; Wt 68.8 kg
[~2024-09-06 08:36] MED LIST changes: +BENZ1TAB5 PO; +DEPA250T2 PO; +HALD100I2 IM; +HALO10TA20 PO
[2024-09-06 08:42] VITALS: BP 122/80; TEMP 97.1; O2SAT 98
== END 2024-09-06 09:04 | disposition left against medical advice (07) ==
LOC: M ED 08:36
DX: Z53.21 Procedure and treatment not carried out due to patient leaving prior to being seen by health care provider (principal)

== ENCOUNTER 2024-10-01 08:22 | Emergency (ER) | payer MEDICARE ==
[~2024-10-01] VITALS: Ht 177.8 cm; Wt 89.2 kg
[2024-10-01] MEDS: IBUPROFEN 600MG TAB PO ONE (11:50)
[2024-10-01] MEDS ORDERED: CEPH500C PO (11:51)
[2024-10-01 11:55] VITALS: BP 132/88; TEMP 96.9; O2SAT 99
== END 2024-10-01 11:59 | disposition home or self-care (01) ==
LOC: M ED 08:22
DX: L03.115 Cellulitis of right lower limb (principal); Z79.2 Long term (current) use of antibiotics; Z79.899 Other long term (current) drug therapy